=== PATIENT | female | born 1955 | race Caucasian/White ===

== ENCOUNTER 2017-03-05 17:20 | Inpatient (IN) | payer BC ==
[2017-03-05] MEDS ORDERED: Sodium Chloride 0.9% 2.5 ML Syringe FLUSH PRN (17:26)
[2017-03-05] MEDS ORDERED: Sodium Chloride 0.9% 10 ML Syringe FLUSH PRN (17:26)
[2017-03-05] MEDS ORDERED: Albuterol/Ipratropium 3.0-0.5 MG/3 ML Neb Soln NEB ONE (17:26)
--- NOTE | 2017-03-05 17:29 | EDM.PDOC ---
ED HISTORY OF PRESENT ILLNESS - General Chief Complaint: Respiratory Problem Stated Complaint: SHORTNESS OF BREATH Time Seen by Provider: 03/05/17 19:01 - History of Present Illness INITIAL COMMENTS - FREE TEXT/NARRATIVE: HISTORY AND PHYSICAL: History of present illness: patient is a 61-year-old white female history of advanced lung cancer qualified as stage IV per patient who states upon arrival that she is DO NOT RESUSCITATE who presents with her shortness of breath worse over the last 3 days stitches fine-tuned today when she spoke with her sister was a nurse and thought that she might be suffering brain damage related to not pursue an evaluation this caused quite a bit of anxiety the patient at her visit here Review of systems: As per history of present illness and below otherwise all systems reviewed and negative. Past medical history: As per history of present illness and as reviewed below otherwise noncontributory. Surgical history: As per history of present illness and as reviewed below otherwise noncontributory. Social history: No reported history of drug or alcohol abuse. Family history: As per history of present illness and as reviewed below otherwise noncontributory. Physical exam: HEENT: Atraumatic, normocephalic, pupils reactive, negative for conjunctival pallor or scleral icterus, mucous membranes moist, throat clear, neck supple, nontender, trachea midline. Lungs: Slightly coarse bilaterally and diminished breath sounds equal bilaterally, chest nontender. Heart: S1S2, regular, negative for clicks, rubs, or JVD. Abdomen: Soft, nondistended, nontender. Negative for masses or hepatosplenomegaly. Negative for costovertebral tenderness. Pelvis: Stable nontender. Genitourinary: Deferred. Rectal: Deferred. Extremities: Atraumatic, negative for cords or calf pain. Neurovascular unremarkable. Neuro: Awake, alert, oriented. Cranial nerves II through XII unremarkable. Cerebellum unremarkable. Motor and sensory unremarkable throughout. Exam nonfocal. Diagnostics: CBC CMP troponin PT INR blood culture x2 lactic acid ABG UA CT angiogram chest Therapeutics: IV O2 monitor albuterol ipratropium nebulizer Impression: #1 dyspnea #2 advanced lung cancer Definitive disposition and diagnosis as appropriate pending reevaluation and review of above. - Related Data Allergies/ADRs: Allergies Allergy/AdvReac Type Severity Reaction Status Date / Time clarithromycin [From Biaxin] Allergy Hives Verified 03/05/17 17:34 Home Meds: Home Meds Calcium Carbonate/Vitamin D3 [Calcium 600 + Vit D Tablet] 1 tab PO DAILY [History] DULoxetine [Cymbalta] 60 mg PO BID 07/23/16 [History] Folic Acid 1 mg PO DAILY 07/23/16 [History] Hydrochlorothiazide [Hydrochlorothiazide] 25 mg PO DAILY 07/23/16 [History] Hydrocodone/Acetaminophen [[place] 10-325] 1 tab PO Q6H PRN 07/23/16 [History] LORazepam [LORazepam] 1 mg PO TID PRN 07/23/16 [History] Lansoprazole [Prevacid] 15 mg PO ACBREAKFAST 07/23/16 [History] Lisinopril [Lisinopril] 10 mg PO DAILY 07/23/16 [History] Magnesium Oxide 800 mg PO TID 07/23/16 [History] Potassium Chloride [Potassium Chloride] 20 meq PO DAILY 07/23/16 [History] Prednisone [IMW: predniSONE] 40 mg PO DAILY 07/23/16 [History] Prochlorperazine Maleate [Compazine] 10 mg PO Q4H PRN 07/23/16 [History] Rosuvastatin [Crestor] 40 mg PO DAILY 07/23/16 [History] amLODIPine Besylate [Amlodipine Besylate] 5 mg PO DAILY 07/23/16 [History] Past Medical History Cardiovascular History: Reports: High cholesterol, Hypertension Neurological History: Reports: Migraines Psychiatric History: Reports: Anxiety, Depression Oncologic (Cancer) History: Reports: Lung - Past Surgical History GI Surgical History: Reports: Appendectomy, Cholecystectomy Female Surgical History: Reports: Hysterectomy Social & Family History - Family History Endocrine/Metabolic: Reports: Diabetes, type I, Diabetes, type II Oncologic: Reports: Colon - Tobacco Use Smoking Status *Q: Former Smoker Years of Tobacco use: 20 Packs/Tins Daily: 0.5 - Caffeine Use Caffeine Use: Reports: Coffee - Recreational Drug Use Recreational Drug Use: No ED ROS GENERAL - Review of Systems Review Of Systems: ROS reveals no pertinent complaints other than HPI. ED EXAM, GENERAL - Physical Exam Exam: See Below (See dictation) Course - Vital Signs Last Recorded V/S: Last Vital Signs Temp 36.4 C 03/05/17 17:35 Pulse 131 H 03/05/17 17:35 Resp 20 03/05/17 17:35 BP 131/97 H 03/05/17 17:35 Pulse Ox 87 L 03/05/17 17:35 - Orders/Labs/Meds Orders: Active Orders 24 hr Category Date Time Status Cardiac Monitoring [RC] . DIRECTED Care 03/05/17 17:25 Active EKG Documentation Completion [RC] STAT Care 03/05/17 17:25 Active Oxygen Therapy, ED [RC] ASDIRECTED Care 03/05/17 17:25 Active RT Aerosol Therapy [RC] ASDIRECTED Care 03/05/17 17:26 Active Ang Chest [CT] Stat Exams 03/05/17 17:26 Ordered CULTURE BLOOD [BC] Stat Lab 03/05/17 17:41 Received CULTURE BLOOD [BC] Stat Lab 03/05/17 17:50 Results UA W/MICROSCOPIC [URIN] Stat Lab 03/05/17 17:26 Uncollected Sodium Chloride 0.9% [Normal Saline] 1,000 ml Med 03/05/17 17:30 Active IV STAT Sodium Chloride 0.9% [Saline Flush] Med 03/05/17 17:26 Active 10 ml FLUSH ASDIRECTED PRN Sodium Chloride 0.9% [Saline Flush] Med 03/05/17 17:26 Active 2.5 ml FLUSH ASDIRECTED PRN Blood Culture x2 Reflex Set [OM.PC] Stat Oth 03/05/17 17:26 Ordered Saline Lock Insert [OM.PC] Stat Oth 03/05/17 17:25 Ordered Medication Orders Sodium Chloride (Normal Saline) 1,000 mls @ 125 mls/hr IV STAT [facility] Last Admin: 03/05/17 17:54 Dose: 125 mls/hr Sodium Chloride (Saline Flush) 10 ml FLUSH ASDIRECTED PRN PRN Reason: Keep Vein Open Sodium Chloride (Saline Flush) 2.5 ml FLUSH ASDIRECTED PRN PRN Reason: Keep Vein Open Labs: Laboratory Tests 03/05/17 03/05/17 03/05/17 Range/Units 17:50 17:50 17:50 WBC 4.87 (4.0-11.0) K/uL RBC 4.92 (4.30-5.90) M/uL Hgb 11.8 L (12.0-16.0) g/dL Hct 39.2 (36.0-46.0) % MCV 79.7 L (80.0-98.0) fL MCH 24.0 L (27.0-32.0) pg MCHC 30.1 L (31.0-37.0) g/dL RDW Std Deviation 49.2 (28.0-62.0) fl RDW Coeff of Ge 17 H (11.0-15.0) % Plt Count 182 (150-400) K/uL MPV 9.50 (7.40-12.00) fL Add Manual Diff YES Neutrophils % (Manual) 81 H (48.0-80.0) % Band Neutrophils % 8 % Lymphocytes % (Manual) 5 L (16.0-40.0) % Monocytes % (Manual) 4 (0.0-15.0) % Basophils % (Manual) 1 (0.0-1.5) % Metamyelocytes % 1 % Nucleated RBC % 0.4 /100WBC Absolute Seg Neuts 3.9 Band Neutrophils # 0.4 Lymphocytes # (Manual) 0.2 Monocytes # (Manual) 0.2 Basophils # (Manual) 0 Absolute Metamyelocyte 0 Nucleated RBCs # 0 K/uL INR 0.92 (0.86-1.11) ABG pH (7.35-7.45) ABG pCO2 (35-45) mmHG ABG pO2 (75-100) mmHG ABG HCO3 (22-26) mEq/L ABG Total CO2 ABG Base Excess (-2.0-2.0) Lactate 3.0 H (0.20-2.00) mmol/L Sodium (136-146) mmol/L Potassium (3.5-5.1) mmol/L Chloride (98-110) mmol/L Carbon Dioxide (21-31) mmol/L BUN (6.0-23.0) mg/dL Creatinine (0.6-1.5) mg/dL Est Cr Clr Drug Dosing mL/min Estimated GFR (MDRD) ml/min Glucose (60-110) mg/dL Calcium (8.8-10.8) mg/dL Total Bilirubin (0.1-1.5) mg/dL AST (5-40) IU/L ALT (8-54) IU/L Alkaline Phosphatase (40-150) Troponin I (0.0-0.29) NG/ML B-Natriuretic Peptide (<100) PG/ML Total Protein (6.0-8.0) g/dL Albumin (3.4-4.8) g/dL Globulin (2.0-3.5) g/dL Albumin/Globulin Ratio (1.3-2.8) 03/05/17 03/05/17 03/05/17 Range/Units 17:50 17:50 17:50 WBC (4.0-11.0) K/uL RBC (4.30-5.90) M/uL Hgb (12.0-16.0) g/dL Hct (36.0-46.0) % MCV (80.0-98.0) fL MCH (27.0-32.0) pg MCHC (31.0-37.0) g/dL RDW Std Deviation (28.0-62.0) fl RDW Coeff of Ge (11.0-15.0) % Plt Count (150-400) K/uL MPV (7.40-12.00) fL Add Manual Diff Neutrophils % (Manual) (48.0-80.0) % Band Neutrophils % % Lymphocytes % (Manual) (16.0-40.0) % Monocytes % (Manual) (0.0-15.0) % Basophils % (Manual) (0.0-1.5) % Metamyelocytes % % Nucleated RBC % /100WBC Absolute Seg Neuts Band Neutrophils # Lymphocytes # (Manual) Monocytes # (Manual) Basophils # (Manual) Absolute Metamyelocyte Nucleated RBCs # K/uL INR (0.86-1.11) ABG pH (7.35-7.45) ABG pCO2 (35-45) mmHG ABG pO2 (75-100) mmHG ABG HCO3 (22-26) mEq/L ABG Total CO2 ABG Base Excess (-2.0-2.0) Lactate (0.20-2.00) mmol/L Sodium 135 L (136-146) mmol/L Potassium 3.6 (3.5-5.1) mmol/L Chloride 99 (98-110) mmol/L Carbon Dioxide 23 (21-31) mmol/L BUN 18 (6.0-23.0) mg/dL Creatinine 0.8 (0.6-1.5) mg/dL Est Cr Clr Drug Dosing 62.96 mL/min Estimated GFR (MDRD) > 60.0 ml/min Glucose 130 H (60-110) mg/dL Calcium 9.2 (8.8-10.8) mg/dL Total Bilirubin 0.3 (0.1-1.5) mg/dL AST 16 (5-40) IU/L ALT 17 (8-54) IU/L Alkaline Phosphatase 63 (40-150) Troponin I < 0.10 (0.0-0.29) NG/ML B-Natriuretic Peptide 22 (<100) PG/ML Total Protein 6.0 (6.0-8.0) g/dL Albumin 3.3 L (3.4-4.8) g/dL Globulin 2.7 (2.0-3.5) g/dL Albumin/Globulin Ratio 1.2 L (1.3-2.8) 04/29/17 Range/Units 18:03 WBC (4.0-11.0) K/uL RBC (4.30-5.90) M/uL Hgb (12.0-16.0) g/dL Hct (36.0-46.0) % MCV (80.0-98.0) fL MCH (27.0-32.0) pg MCHC (31.0-37.0) g/dL RDW Std Deviation (28.0-62.0) fl RDW Coeff of Ge (11.0-15.0) % Plt Count (150-400) K/uL MPV (7.40-12.00) fL Add Manual Diff Neutrophils % (Manual) (48.0-80.0) % Band Neutrophils % % Lymphocytes % (Manual) (16.0-40.0) % Monocytes % (Manual) (0.0-15.0) % Basophils % (Manual) (0.0-1.5) % Metamyelocytes % % Nucleated RBC % /100WBC Absolute Seg Neuts Band Neutrophils # Lymphocytes # (Manual) Monocytes # (Manual) Basophils # (Manual) Absolute Metamyelocyte Nucleated RBCs # K/uL INR (0.86-1.11) ABG pH 7.481 H (7.35-7.45) ABG pCO2 36 (35-45) mmHG ABG pO2 66 L (75-100) mmHG ABG HCO3 27 H (22-26) mEq/L ABG Total CO2 24.4 ABG Base Excess 3.0 H (-2.0-2.0) Lactate (0.20-2.00) mmol/L Sodium (136-146) mmol/L Potassium (3.5-5.1) mmol/L Chloride (98-110) mmol/L Carbon Dioxide (21-31) mmol/L BUN (6.0-23.0) mg/dL Creatinine (0.6-1.5) mg/dL Est Cr Clr Drug Dosing mL/min Estimated GFR (MDRD) ml/min Glucose (60-110) mg/dL Calcium (8.8-10.8) mg/dL Total Bilirubin (0.1-1.5) mg/dL AST (5-40) IU/L ALT (8-54) IU/L Alkaline Phosphatase (40-150) Troponin I (0.0-0.29) NG/ML B-Natriuretic Peptide (<100) PG/ML Total Protein (6.0-8.0) g/dL Albumin (3.4-4.8) g/dL Globulin (2.0-3.5) g/dL Albumin/Globulin Ratio (1.3-2.8) Meds: Medications Generic Name Dose Route Start Last Admin Trade Name Freq PRN Reason Stop Dose Admin Sodium Chloride 1,000 mls @ 125 mls/hr 03/05/17 17:30 03/05/17 17:54 Normal Saline IV 125 mls/hr STAT EDUARDO Administration Sodium Chloride 10 ml 03/05/17 17:26 Saline Flush FLUSH ASDIRECTED PRN Keep Vein Open Sodium Chloride 2.5 ml 03/05/17 17:26 Saline Flush FLUSH ASDIRECTED PRN Keep Vein Open Discontinued Medications Generic Name Dose Route Start Last Admin Trade Name Freq PRN Reason Stop Dose Admin Albuterol/Ipratropium 3 ml 03/05/17 17:26 03/05/17 18:05 Duoneb 3.0-0.5 Mg/3 Ml NEB 03/05/17 17:27 3 ml ONETIME ONE Administration Departure - Departure Time of Disposition: 19:01 Disposition: Refer to Observation Condition: good Clinical Impression: Metastatic lung cancer (metastasis from lung to other site), Hypoxemia Forms: ED Department Discharge - My Orders Last 24 Hours: My Active Orders 03/05/17 17:25 Cardiac Monitoring [RC] . DIRECTED EKG Documentation Completion [RC] STAT Oxygen Therapy, ED [RC] ASDIRECTED Saline Lock Insert [OM.PC] Stat 03/05/17 17:26 RT Aerosol Therapy [RC] ASDIRECTED Ang Chest [CT] Stat UA W/MICROSCOPIC [URIN] Stat Sodium Chloride 0.9% [Saline Flush] 10 ml FLUSH ASDIRECTED PRN Sodium Chloride 0.9% [Saline Flush] 2.5 ml FLUSH ASDIRECTED PRN Blood Culture x2 Reflex Set [OM.PC] Stat 03/05/17 17:30 Sodium Chloride 0.9% [Normal Saline] 1,000 ml IV STAT 03/05/17 17:41 CULTURE BLOOD [BC] Stat 03/05/17 17:50 CULTURE BLOOD [BC] Stat - Assessment/Plan Last 24 Hours: My Active Orders 03/05/17 17:25 Cardiac Monitoring [RC] . DIRECTED EKG Documentation Completion [RC] STAT Oxygen Therapy, ED [RC] ASDIRECTED Saline Lock Insert [OM.PC] Stat 03/05/17 17:26 RT Aerosol Therapy [RC] ASDIRECTED Ang Chest [CT] Stat UA W/MICROSCOPIC [URIN] Stat Sodium Chloride 0.9% [Saline Flush] 10 ml FLUSH ASDIRECTED PRN Sodium Chloride 0.9% [Saline Flush] 2.5 ml FLUSH ASDIRECTED PRN Blood Culture x2 Reflex Set [OM.PC] Stat 03/05/17 17:30 Sodium Chloride 0.9% [Normal Saline] 1,000 ml IV STAT 03/05/17 17:41 CULTURE BLOOD [BC] Stat 03/05/17 17:50 CULTURE BLOOD [BC] Stat
[2017-03-05] MEDS ORDERED: Sodium Chloride 0.9% 1,000 ML IV SCH (17:30)
[2017-03-05 18:25] LABS: CHLORIDE,CL 99 mmol/L (98-110); SODIUM,NA 135 mmol/L (136-146)
[2017-03-05] MEDS ORDERED: Albuterol/Ipratropium 3.0-0.5 MG/3 ML Neb Soln NEB PRN (19:39)
[2017-03-05] MEDS ORDERED: LORazepam 1 MG Tab PO PRN (20:00)
--- NOTE | 2017-03-05 20:00 | PCM.SN ---
- Free Text/Narrative Note: Called by nursing for large bore IV access for CT angio. U/S was used to identify the Rt deep brachial vein. 20g IV was used. +Blood return. Flushes with ease.
[2017-03-05] MEDS ORDERED: Magnesium Sulfate/Water 2 GM in Premix Bag 1 BAG IV ONE (20:30)
[2017-03-05] MEDS ORDERED: Lidocaine 2% Viscous Solution 15 ML Cup PO PRN (20:33)
[2017-03-05] MEDS: DULoxetine 60 MG Cap PO SCH (21:22)
[2017-03-05] MEDS: Enoxaparin 40 MG/0.4 ML Syringe SUBCUT SCH (21:22)
[2017-03-05] MEDS: Magnesium Oxide 400 MG Tab PO SCH (22:16)
[2017-03-05] MEDS ORDERED: Iopamidol 755 MG/ML 50 ML Bottle IV STA (22:40)
[2017-03-06] MEDS ORDERED: Sodium Chloride 0.9% 1,000 ML IV SCH (01:45)
[2017-03-06] MEDS: Cefepime 2 GM in Premix Bag 1 BAG IV SCH ×2 (03:19→14:32)
[2017-03-06] MEDS: Levofloxacin/Dextrose 5%-Water 750 MG in Premix Bag 1 BAG IV SCH (04:08)
[2017-03-06 04:17] LABS: CHLORIDE,CL 100 mmol/L (98-110); SODIUM,NA 135 mmol/L (136-146)
[2017-03-06] MEDS: Acetaminophen/HYDROcodone 325-10 MG Tab PO PRN ×3 (05:28→18:00)
[2017-03-06] MEDS: Magnesium Oxide 400 MG Tab PO SCH ×3 (06:34→20:59)
[2017-03-06] MEDS: Omeprazole 20 MG Cap.CR PO SCH (06:34)
[2017-03-06] MEDS: predniSONE 10 MG Tab PO SCH (08:02)
[2017-03-06] MEDS: Rosuvastatin 10 MG Tab PO SCH (08:02)
[2017-03-06] MEDS: Lisinopril 10 MG Tab PO SCH (08:03)
[2017-03-06] MEDS: Hydrochlorothiazide 25 MG Tab PO SCH (08:03)
[2017-03-06] MEDS: DULoxetine 60 MG Cap PO SCH ×2 (08:03→20:58)
[2017-03-06] MEDS: amLODIPine 5 MG Tab PO SCH (08:03)
[2017-03-06] MEDS: Folic Acid 1 MG Tab PO SCH (08:03)
[2017-03-06] MEDS: Enoxaparin 40 MG/0.4 ML Syringe SUBCUT SCH ×2 (08:06→20:58)
--- NOTE | 2017-03-06 09:55 | PCM.HP ---
H&P History of Present Illness - General Date of Service: 03/05/17 Admit Problem/Dx: Admission Diagnosis/Problem Admission Diagnosis/Problem Pneumonia Source of Information: Patient History Limitations: Reports: No limitations - History of Present Illness Initial Comments - Free Text/Narative: lstringy infiltrate inferiorlyce the., she has become progressively short of breath with activity even walking across the room, Found to be hypoxic i ER. Ct angio attempted but IV infiltrated and CXR was done instead showing R hilar tumor, overall hazy appearance of R lung and stringy RLL infiltrate Onset of Symptoms: Reports: gradual Duration of Symptoms: Reports: Week(s):, Getting worse Severity: moderate Improves with: Reports: None Worsens with: Reports: Movement Associated Symptoms: Denies: chest pain, cough back Pain Score (Numeric/FACES): 4 - Related Data Allergies/Adverse Reactions: Allergies Allergy/AdvReac Type Severity Reaction Status Date / Time clarithromycin [From Biaxin] Allergy Hives Verified 03/05/17 17:34 nivolumab [From Opdivo] Allergy Diarrhea Verified 03/05/17 20:17 Home Medications: Home Meds Calcium Carbonate/Vitamin D3 [Calcium 600 + Vit D Tablet] 1 tab PO DAILY [History] DULoxetine [Cymbalta] 60 mg PO BID 07/23/16 [History] Folic Acid 1 mg PO DAILY 07/23/16 [History] Hydrochlorothiazide [Hydrochlorothiazide] 25 mg PO DAILY 07/23/16 [History] Hydrocodone/Acetaminophen [[place] 10-325] 1 tab PO Q6H PRN 07/23/16 [History] LORazepam [LORazepam] 1 mg PO TID PRN 07/23/16 [History] Lansoprazole [Prevacid] 15 mg PO ACBREAKFAST 07/23/16 [History] Lisinopril [Lisinopril] 10 mg PO DAILY 07/23/16 [History] Magnesium Oxide 800 mg PO BID 07/23/16 [History] Potassium Chloride [Potassium Chloride] 20 meq PO BID 07/23/16 [History] Prednisone [IMW: predniSONE] 10 mg PO DAILY 07/23/16 [History] Rosuvastatin [Crestor] 40 mg PO DAILY 07/23/16 [History] amLODIPine Besylate [Amlodipine Besylate] 5 mg PO DAILY 07/23/16 [History] Past Medical History HEENT History: Reports: Impaired vision Other HEENT History: wears glasses Cardiovascular History: Reports: High cholesterol, Hypertension Respiratory History: Reports: Other (see below) Other Respiratory History: Lung cancer Gastrointestinal History: Reports: Chronic diarrhea (had severe diarrhea while receiving Opdivo, requiring steroids to resolve) EVENTS SPECIALIST History: Reports: Neurological History: Reports: Migraines Psychiatric History: Reports: Anxiety, Depression Oncologic (Cancer) History: Reports: Lung - Past Surgical History GI Surgical History: Reports: Appendectomy, Cholecystectomy Female Surgical History: Reports: Hysterectomy Social & Family History - Family History Family Medical History: Noncontributory Endocrine/Metabolic: Reports: Diabetes, type I, Diabetes, type II Oncologic: Reports: Colon - Tobacco Use Smoking Status *Q: Never Smoker Years of Tobacco use: 20 Packs/Tins Daily: 0.5 Second Hand Smoke Exposure: No - Caffeine Use Caffeine Use: Reports: Coffee - Recreational Drug Use Recreational Drug Use: No - Living Situation & Occupation 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) H&P Review of Systems - Review of Systems: Review Of Systems: See Below General: Reports: weight gain (in past) HEENT: Reports: no symptoms Pulmonary: Denies: Wheezing, Pleuritic Chest Pain, Cough, Sputum Cardiovascular: Reports: no symptoms Gastrointestinal: Reports: No symptoms Genitourinary: Reports: no symptoms Musculoskeletal: Reports: no symptoms Skin: Reports: no symptoms Psychiatric: Reports: anxiety Hematologic/Lymphatic: Reports: no symptoms Exam - Exam Exam: See Below - Vital Signs Vital Signs: Last Vital Signs Temp 36.6 C 03/06/17 09:00 Pulse 97 03/06/17 09:00 Resp 16 03/06/17 09:00 BP 101/58 L 03/06/17 09:00 Pulse Ox 89 L 03/06/17 09:00 Weight: 81.511 kg - Exam Quality Assessment: supplemental oxygen General: alert, mild distress HEENT: Posterior pharynx clear Neck: supple, 2+ carotid pulse wo bruit Lungs: Clear to auscultation, Decreased breath sounds, Other (mediport L chest) Cardiovascular: regular rate Abdomen: normal bowel sounds (Female) Exam: Deferred Rectal (Female) Exam: Deferred Back Exam: normal inspection Extremities: normal inspection. No: clubbing, calf tenderness Skin: warm, intact Neurological: normal speech Neuro Extensive - Mental Status: alert, oriented x3 Psychiatric: anxious - Patient Data Lab Results last 24 hrs: Laboratory Results - last 24 hr 03/05/17 03/06/17 03/06/17 Range/Units 22:29 01:00 03:25 WBC 5.04 (4.0-11.0) K/uL RBC 4.44 (4.30-5.90) M/uL Hgb 10.6 L (12.0-16.0) g/dL Hct 34.7 L (36.0-46.0) % MCV 78.2 L (80.0-98.0) fL MCH 23.9 L (27.0-32.0) pg MCHC 30.5 L (31.0-37.0) g/dL RDW Std Deviation 47.9 (28.0-62.0) fl RDW Coeff of Ge 17 H (11.0-15.0) % Plt Count 170 (150-400) K/uL MPV 9.30 (7.40-12.00) fL Add Manual Diff YES Neutrophils % (Manual) 80 (48.0-80.0) % Band Neutrophils % 2 % Lymphocytes % (Manual) 12 L (16.0-40.0) % Monocytes % (Manual) 6 (0.0-15.0) % Nucleated RBC % 0.0 /100WBC Absolute Seg Neuts 4.0 Band Neutrophils # 0.1 Lymphocytes # (Manual) 0.6 Monocytes # (Manual) 0.3 Nucleated RBCs # 0 K/uL Lactate 0.7 (0.20-2.00) mmol/L Sodium (136-146) mmol/L Potassium (3.5-5.1) mmol/L Chloride (98-110) mmol/L Carbon Dioxide (21-31) mmol/L BUN (6.0-23.0) mg/dL Creatinine (0.6-1.5) mg/dL Est Cr Clr Drug Dosing mL/min Estimated GFR (MDRD) ml/min Glucose (60-110) mg/dL Calcium (8.8-10.8) mg/dL Urine Color YELLOW Urine Appearance CLEAR Urine pH 7.0 (5.0-8.0) Ur Specific [place] 1.015 (1.001-1.035) Urine Protein NEGATIVE (NEGATIVE) mg/dL Urine Glucose (UA) NEGATIVE (NEGATIVE) mg/dL Urine Ketones NEGATIVE (NEGATIVE) mg/dL Urine Occult Blood NEGATIVE (NEGATIVE) Urine Nitrite NEGATIVE (NEGATIVE) Urine Bilirubin NEGATIVE (NEGATIVE) Urine Urobilinogen 0.2 (<2.0) EU/dL Ur Leukocyte Esterase NEGATIVE (NEGATIVE) Urine RBC 1-2 (0-2/HPF) Urine WBC 0-2 (0-5/HPF) Ur Epithelial Cells OCCASIONAL (NONE-FEW) Urine Bacteria RARE (NEGATIVE) 03/06/17 Range/Units 03:25 WBC (4.0-11.0) K/uL RBC (4.30-5.90) M/uL Hgb (12.0-16.0) g/dL Hct (36.0-46.0) % MCV (80.0-98.0) fL MCH (27.0-32.0) pg MCHC (31.0-37.0) g/dL RDW Std Deviation (28.0-62.0) fl RDW Coeff of Ge (11.0-15.0) % Plt Count (150-400) K/uL MPV (7.40-12.00) fL Add Manual Diff Neutrophils % (Manual) (48.0-80.0) % Band Neutrophils % % Lymphocytes % (Manual) (16.0-40.0) % Monocytes % (Manual) (0.0-15.0) % Nucleated RBC % /100WBC Absolute Seg Neuts Band Neutrophils # Lymphocytes # (Manual) Monocytes # (Manual) Nucleated RBCs # K/uL Lactate (0.20-2.00) mmol/L Sodium 135 L (136-146) mmol/L Potassium 3.3 L (3.5-5.1) mmol/L Chloride 100 (98-110) mmol/L Carbon Dioxide 25 (21-31) mmol/L BUN 10 (6.0-23.0) mg/dL Creatinine 0.7 (0.6-1.5) mg/dL Est Cr Clr Drug Dosing 71.96 mL/min Estimated GFR (MDRD) > 60.0 ml/min Glucose 93 (60-110) mg/dL Calcium 8.3 L (8.8-10.8) mg/dL Urine Color Urine Appearance Urine pH (5.0-8.0) Ur Specific [place] (1.001-1.035) Urine Protein (NEGATIVE) mg/dL Urine Glucose (UA) (NEGATIVE) mg/dL Urine Ketones (NEGATIVE) mg/dL Urine Occult Blood (NEGATIVE) Urine Nitrite (NEGATIVE) Urine Bilirubin (NEGATIVE) Urine Urobilinogen (<2.0) EU/dL Ur Leukocyte Esterase (NEGATIVE) Urine RBC (0-2/HPF) Urine WBC (0-5/HPF) Ur Epithelial Cells (NONE-FEW) Urine Bacteria (NEGATIVE) Result Diagrams: 03/06/17 03:25 03/06/17 03:25 *Q Meaningful Use (ADM) - VTE *Q VTE Criteria *Q: - VTE Risk Assess *Q Each Risk Factor Represents 2 Points: Age 60 - 74 Years, Previous Malignancy Total Score 2 Point Risk Factors: 4 Each Risk Factor Represents 3 Points: Present Cancer or Chemotherapy Total Score 3 Point Risk Factors: 3 - Stroke *Q Stroke Criteria *Q: - AMI *Q AMI Criteria *Q: Problem List Initiated/Reviewed/Updated: Yes Orders Last 24hrs: Active Orders 24 hr Category Date Time Status Admission Status [Patient Status] [ADT] Routine ADT 03/05/17 20:36 Active Oxygen Therapy [RC] PRN Care 03/06/17 03:02 Active Pneumonia Education [RC] Click To Edit Care 03/06/17 03:02 Active Telemetry Monitoring [Cardiac Monitoring] [RC] Q8H Care 03/06/17 02:03 Active Regular Diet [DIET] Diet 03/05/17 Dinner Active CULTURE BLOOD [BC] Stat Lab 03/06/17 03:25 Received CULTURE BLOOD [BC] Stat Lab 03/06/17 03:40 Received Cefepime [Maxipime in D5W 2 GM/50 ML] 2 gm Med 03/06/17 03:00 Active Premix Bag 1 bag IV Q12H Levofloxacin/Dextrose 5%-Water [Levaquin in D5W 750 MG/ Med 03/06/17 03:00 Active 150 ML] 750 mg Premix Bag 1 bag IV Q24H Sodium Chloride 0.9% [Normal Saline] 1,000 ml Med 03/06/17 01:45 Active IV ASDIRECTED Blood Culture x2 Reflex Set [OM.PC] Stat Oth 03/06/17 03:02 Ordered Medication Orders Hydrocodone Bitart/Acetaminophen ([place] 325-10 Mg) 1 tab PO Q6H PRN PRN Reason: Pain Last Admin: 03/06/17 05:28 Dose: 1 tab Albuterol/Ipratropium (Duoneb 3.0-0.5 Mg/3 Ml) 3 ml NEB Q4HRRT PRN PRN Reason: Shortness Of Breath/wheezing Amlodipine Besylate (Norvasc) 5 mg PO DAILY [facility] Last Admin: 03/06/17 08:03 Dose: 5 mg Duloxetine HCl (Cymbalta) 60 mg PO BID [facility] Last Admin: 03/06/17 08:03 Dose: 60 mg Admin: 03/05/17 21:22 Dose: 60 mg Enoxaparin Sodium (Lovenox) 40 mg SUBCUT Q12HR [facility] Last Admin: 03/06/17 08:06 Dose: 40 mg Admin: 03/05/17 21:22 Dose: 40 mg Folic Acid (Folic Acid) 1 mg PO DAILY [facility] Last Admin: 03/06/17 08:03 Dose: 1 mg Hydrochlorothiazide (Hydrochlorothiazide) 25 mg PO DAILY [facility] Last Admin: 03/06/17 08:03 Dose: 25 mg Sodium Chloride (Normal Saline) 1,000 mls @ 100 mls/hr IV ASDIRECTED [facility] Stop: 03/06/17 11:44 Last Admin: 03/06/17 01:42 Dose: 100 mls/hr Cefepime HCl 2 gm/ Premix 50 mls @ 100 mls/hr IV Q12H [facility] Last Admin: 03/06/17 03:19 Dose: 100 mls/hr Levofloxacin/Dextrose 750 mg/ (Premix) 150 mls @ 150 mls/hr IV Q24H [facility] Last Admin: 03/06/17 04:08 Dose: 150 mls/hr Lidocaine HCl (Xylocaine 2% Viscous) 15 ml PO ASDIRECTED PRN PRN Reason: Dyspepsia Lisinopril (Prinivil) 10 mg PO DAILY [facility] Last Admin: 03/06/17 08:03 Dose: 10 mg Lorazepam (Ativan) 1 mg PO TID PRN PRN Reason: ANXIETY Last Admin: 03/05/17 21:22 Dose: 1 mg Magnesium Oxide (Magnesium Oxide) 800 mg PO TID [facility] Last Admin: 03/06/17 06:34 Dose: 800 mg Admin: 03/05/17 22:16 Dose: 800 mg Omeprazole (Omeprazole) 20 mg PO ACBREAKFAST [facility] Last Admin: 03/06/17 06:34 Dose: 20 mg Prednisone (Prednisone) 10 mg PO WITHBREAKFAST [facility]UARDO Last Admin: 03/06/17 08:02 Dose: 10 mg Rosuvastatin Calcium (Crestor) 40 mg PO DAILY [facility] Last Admin: 03/06/17 08:02 Dose: 40 mg Sodium Chloride (Saline Flush) 10 ml FLUSH ASDIRECTED PRN PRN Reason: Keep Vein Open Sodium Chloride (Saline Flush) 2.5 ml FLUSH ASDIRECTED PRN PRN Reason: Keep Vein Open Assessment/Plan Comment:: hypoxia out of proportion to extent of tumor, possible radiation pneumonitis, probable RLL pneumonia Will treat as health care associated pneumonia with antibiotics and respiratory therapy
[2017-03-06] MEDS: Potassium Chloride 20 MEQ Tab.ER PO SCH ×2 (10:51→20:58)
--- NOTE | 2017-03-06 11:05 | PCM.PN ---
- General Info Date of Service: 03/06/17 Admission Dx/Problem (Free Text): feel better with oxygen, but did walk to bathroom without major dyspnea Functional Status: Reports: tolerating diet (barely, does not care for it) - Review of Systems General: Reports: No Symptoms HEENT: Reports: no symptoms Pulmonary: Reports: shortness of breath (better, but very inactive) Cardiovascular: Reports: No Symptoms Gastrointestinal: Reports: No symptoms Genitourinary: Reports: no symptoms Musculoskeletal: Reports: no symptoms - Patient Data Vitals - most recent: Last Vital Signs Temp 36.6 C 03/06/17 09:00 Pulse 97 03/06/17 09:00 Resp 16 03/06/17 09:00 BP 101/58 L 03/06/17 09:00 Pulse Ox 89 L 03/06/17 09:00 Weight - most recent: 81.511 kg I&O - last 24 hours: Intake & Output 03/05/17 03/06/17 03/06/17 22:59 06:59 14:59 Intake Total 700 Output Total 900 Balance -200 Lab Results last 24 hrs: Laboratory Results - last 24 hr 03/05/17 03/06/17 03/06/17 Range/Units 22:29 01:00 03:25 WBC 5.04 (4.0-11.0) K/uL RBC 4.44 (4.30-5.90) M/uL Hgb 10.6 L (12.0-16.0) g/dL Hct 34.7 L (36.0-46.0) % MCV 78.2 L (80.0-98.0) fL MCH 23.9 L (27.0-32.0) pg MCHC 30.5 L (31.0-37.0) g/dL RDW Std Deviation 47.9 (28.0-62.0) fl RDW Coeff of Ge 17 H (11.0-15.0) % Plt Count 170 (150-400) K/uL MPV 9.30 (7.40-12.00) fL Add Manual Diff YES Neutrophils % (Manual) 80 (48.0-80.0) % Band Neutrophils % 2 % Lymphocytes % (Manual) 12 L (16.0-40.0) % Monocytes % (Manual) 6 (0.0-15.0) % Nucleated RBC % 0.0 /100WBC Absolute Seg Neuts 4.0 Band Neutrophils # 0.1 Lymphocytes # (Manual) 0.6 Monocytes # (Manual) 0.3 Nucleated RBCs # 0 K/uL Lactate 0.7 (0.20-2.00) mmol/L Sodium (136-146) mmol/L Potassium (3.5-5.1) mmol/L Chloride (98-110) mmol/L Carbon Dioxide (21-31) mmol/L BUN (6.0-23.0) mg/dL Creatinine (0.6-1.5) mg/dL Est Cr Clr Drug Dosing mL/min Estimated GFR (MDRD) ml/min Glucose (60-110) mg/dL Calcium (8.8-10.8) mg/dL Urine Color YELLOW Urine Appearance CLEAR Urine pH 7.0 (5.0-8.0) Ur Specific [place] 1.015 (1.001-1.035) Urine Protein NEGATIVE (NEGATIVE) mg/dL Urine Glucose (UA) NEGATIVE (NEGATIVE) mg/dL Urine Ketones NEGATIVE (NEGATIVE) mg/dL Urine Occult Blood NEGATIVE (NEGATIVE) Urine Nitrite NEGATIVE (NEGATIVE) Urine Bilirubin NEGATIVE (NEGATIVE) Urine Urobilinogen 0.2 (<2.0) EU/dL Ur Leukocyte Esterase NEGATIVE (NEGATIVE) Urine RBC 1-2 (0-2/HPF) Urine WBC 0-2 (0-5/HPF) Ur Epithelial Cells OCCASIONAL (NONE-FEW) Urine Bacteria RARE (NEGATIVE) 03/06/17 Range/Units 03:25 WBC (4.0-11.0) K/uL RBC (4.30-5.90) M/uL Hgb (12.0-16.0) g/dL Hct (36.0-46.0) % MCV (80.0-98.0) fL MCH (27.0-32.0) pg MCHC (31.0-37.0) g/dL RDW Std Deviation (28.0-62.0) fl RDW Coeff of Ge (11.0-15.0) % Plt Count (150-400) K/uL MPV (7.40-12.00) fL Add Manual Diff Neutrophils % (Manual) (48.0-80.0) % Band Neutrophils % % Lymphocytes % (Manual) (16.0-40.0) % Monocytes % (Manual) (0.0-15.0) % Nucleated RBC % /100WBC Absolute Seg Neuts Band Neutrophils # Lymphocytes # (Manual) Monocytes # (Manual) Nucleated RBCs # K/uL Lactate (0.20-2.00) mmol/L Sodium 135 L (136-146) mmol/L Potassium 3.3 L (3.5-5.1) mmol/L Chloride 100 (98-110) mmol/L Carbon Dioxide 25 (21-31) mmol/L BUN 10 (6.0-23.0) mg/dL Creatinine 0.7 (0.6-1.5) mg/dL Est Cr Clr Drug Dosing 71.96 mL/min Estimated GFR (MDRD) > 60.0 ml/min Glucose 93 (60-110) mg/dL Calcium 8.3 L (8.8-10.8) mg/dL Urine Color Urine Appearance Urine pH (5.0-8.0) Ur Specific [place] (1.001-1.035) Urine Protein (NEGATIVE) mg/dL Urine Glucose (UA) (NEGATIVE) mg/dL Urine Ketones (NEGATIVE) mg/dL Urine Occult Blood (NEGATIVE) Urine Nitrite (NEGATIVE) Urine Bilirubin (NEGATIVE) Urine Urobilinogen (<2.0) EU/dL Ur Leukocyte Esterase (NEGATIVE) Urine RBC (0-2/HPF) Urine WBC (0-5/HPF) Ur Epithelial Cells (NONE-FEW) Urine Bacteria (NEGATIVE) Med Orders - Current: Current Medications Hydrocodone Bitart/Acetaminophen ([place] 325-10 Mg) 1 tab PO Q6H PRN PRN Reason: Pain Last Admin: 03/06/17 05:28 Dose: 1 tab Albuterol/Ipratropium (Duoneb 3.0-0.5 Mg/3 Ml) 3 ml NEB Q4HRRT PRN PRN Reason: Shortness Of Breath/wheezing Amlodipine Besylate (Norvasc) [address] [facility] Last Admin: 03/06/17 08:03 Dose: 5 mg Duloxetine HCl (Cymbalta) [address] [facility] Last Admin: 03/06/17 08:03 Dose: 60 mg Enoxaparin Sodium (Lovenox) [address] [facility] Last Admin: 03/06/17 08:06 Dose: 40 mg Folic Acid (Folic Acid) [address] [facility] Last Admin: 03/06/17 08:03 Dose: 1 mg Hydrochlorothiazide (Hydrochlorothiazide) [address] [facility] Last Admin: 03/06/17 08:03 Dose: 25 mg Sodium Chloride (Normal Saline) 1,000 mls @ 100 mls/hr IV ASDIRECTED [facility] Stop: 03/06/17 11:44 Last Admin: 03/06/17 01:42 Dose: 100 mls/hr Cefepime HCl 2 gm/ Premix 50 mls @ 100 mls/hr IV Q12H [facility] Last Admin: 03/06/17 03:19 Dose: 100 mls/hr Levofloxacin/Dextrose 750 mg/ (Premix) 150 mls @ 150 mls/hr IV Q24H [facility] Last Admin: 03/06/17 04:08 Dose: 150 mls/hr Lidocaine HCl (Xylocaine 2% Viscous) 15 ml PO ASDIRECTED PRN PRN Reason: Dyspepsia Lisinopril (Prinivil) [address] [facility] Last Admin: 03/06/17 08:03 Dose: 10 mg Lorazepam (Ativan) 1 mg PO TID PRN PRN Reason: ANXIETY Last Admin: 03/05/17 21:22 Dose: 1 mg Magnesium Oxide (Magnesium Oxide) [address] [facility] Last Admin: 03/06/17 06:34 Dose: 800 mg Omeprazole (Omeprazole) [address] [facility] Last Admin: 03/06/17 06:34 Dose: 20 mg Potassium Chloride (Klor-Con M20) [address] [facility] Last Admin: 03/06/17 10:51 Dose: 20 meq Prednisone (Prednisone) [address] [facility] Last Admin: 03/06/17 08:02 Dose: 10 mg Rosuvastatin Calcium (Crestor) [address] [facility] Last Admin: 03/06/17 08:02 Dose: 40 mg Sodium Chloride (Saline Flush) 10 ml FLUSH ASDIRECTED PRN PRN Reason: Keep Vein Open Sodium Chloride (Saline Flush) 2.5 ml FLUSH ASDIRECTED PRN PRN Reason: Keep Vein Open Discontinued Medications Albuterol/Ipratropium (Duoneb 3.0-0.5 Mg/3 Ml) 3 ml NEB ONETIME ONE Stop: 03/05/17 17:27 Last Admin: 03/05/17 18:05 Dose: 3 ml Sodium Chloride (Normal Saline) 1,000 mls @ 125 mls/hr IV STAT [facility] Last Admin: 03/05/17 17:54 Dose: 125 mls/hr Magnesium Sulfate 2 gm/ Premix 50 mls @ 50 mls/hr IV ONETIME ONE Stop: 03/05/17 21:29 Last Admin: 03/05/17 21:21 Dose: 50 mls/hr Iopamidol (Isovue-370 (76%)) 47 ml IV ONETIME STA Stop: 03/05/17 22:41 Last Admin: 03/05/17 22:41 Dose: 47 ml - Problem List Review Problem List Initiated/Reviewed/Updated: Yes - My Orders Last 24 Hours: My Active Orders 03/05/17 20:36 Admission Status [Patient Status] [ADT] Routine 03/05/17 Dinner Regular Diet [DIET] 03/06/17 01:45 Sodium Chloride 0.9% [Normal Saline] 1,000 ml IV ASDIRECTED 03/06/17 02:03 Telemetry Monitoring [Cardiac Monitoring] [RC] Q8H 03/06/17 03:00 Cefepime [Maxipime in D5W 2 GM/50 ML] 2 gm Premix Bag 1 bag IV Q12H Levofloxacin/Dextrose 5%-Water [Levaquin in D5W 750 MG/150 ML] 750 mg Premix Bag 1 bag IV Q24H 03/06/17 03:02 Oxygen Therapy [RC] PRN Pneumonia Education [RC] Click To Edit Blood Culture x2 Reflex Set [OM.PC] Stat 03/06/17 03:25 CULTURE BLOOD [BC] Stat 03/06/17 03:40 CULTURE BLOOD [BC] Stat 03/06/17 10:30 Potassium Chloride [Klor-Con M20] 20 meq PO BID 03/07/17 06:00 BASIC METABOLIC PANEL,BMP [CHEM] Routine MAGNESIUM [CHEM] Routine - Assessment Assessment:: seems improved. wbc , lactate level ,now normal pulse ox 89% on nasal O2 - Plan Plan:: hypoxia out of proportion to extent of tumor, possible radiation pneumonitis, probable RLL pneumonia Will treat as health care associated pneumonia with antibiotics and respiratory therapy Will continue same
--- NOTE | 2017-03-06 18:36 | CR ---
EXAM DATE: 03/05/17 PATIENT'S AGE: 61 Patient: KRYSTLE GOODMAN Facility: [place], [place] Site . Site : 1955 Study: XRay Chest [id number]/29/2017 8:43:25 PM Ordering Physician: Leti Garcia Final Report: INDICATION: Chest pain and shortness of breath, history of lung cancer. TECHNIQUE: Chest 1 view. COMPARISON: 07/23/2016. FINDINGS: The heart is not enlarged. Left chest Port-A-Cath is stable with tip in the mid SVC. There is a new wedge-shaped opacity emanating from the right hilum to the right lateral chest wall. The left lung is clear. No pneumothorax. No pleural effusion. No acute osseous abnormality. IMPRESSION: New wedge-shaped right perihilar opacity is new from prior chest radiograph and may be acute and secondary to pneumonia. However, given the history of lung carcinoma, this could represent a combination of postsurgical and radiation change. Dictated by Gigi Martin MD @ Mar 05 2017 8:57PM (Electronic Signature) Report Signed by Proxy. ELBA
[2017-03-07] MEDS: Cefepime 2 GM in Premix Bag 1 BAG IV SCH ×2 (02:17→15:04)
[2017-03-07] MEDS: Levofloxacin/Dextrose 5%-Water 750 MG in Premix Bag 1 BAG IV SCH (02:52)
[2017-03-07] MEDS: Acetaminophen/HYDROcodone 325-10 MG Tab PO PRN ×3 (02:57→20:26)
[2017-03-07 06:25] LABS: CHLORIDE,CL 101 mmol/L (98-110); SODIUM,NA 137 mmol/L (136-146)
[2017-03-07] MEDS: Magnesium Oxide 400 MG Tab PO SCH ×3 (06:38→21:31)
[2017-03-07] MEDS: Omeprazole 20 MG Cap.CR PO SCH (06:38)
[2017-03-07] MEDS ORDERED: Magnesium Sulfate/Water 4 GM in Premix Bag 1 BAG IV ONE (09:07)
[2017-03-07] MEDS: Rosuvastatin 10 MG Tab PO SCH (09:27)
[2017-03-07] MEDS: Potassium Chloride 20 MEQ Tab.ER PO SCH ×2 (09:29→20:28)
[2017-03-07] MEDS: Hydrochlorothiazide 25 MG Tab PO SCH (09:29)
[2017-03-07] MEDS: DULoxetine 60 MG Cap PO SCH ×2 (09:29→20:25)
[2017-03-07] MEDS: Enoxaparin 40 MG/0.4 ML Syringe SUBCUT SCH ×2 (09:30→20:28)
[2017-03-07] MEDS: Folic Acid 1 MG Tab PO SCH (09:30)
[2017-03-07] MEDS: Lisinopril 10 MG Tab PO SCH (09:32)
[2017-03-07] MEDS: amLODIPine 5 MG Tab PO SCH (09:32)
[2017-03-07] MEDS: predniSONE 10 MG Tab PO SCH (09:48)
--- NOTE | 2017-03-07 12:01 | PCM.PN ---
<Lebron eMrcedes - Last Filed: 03/07/17 11:57> - General Info Date of Service: 03/07/17 Admission Dx/Problem (Free Text): Admission Diagnosis/Problem Admission Diagnosis/Problem Pneumonia Subjective Update: Patient is in much better since admission. She notes her work of breathing is improved. She is tolerating oral intake and voiding appropriately. She is ambulating with some mild shortness of breath. Functional Status: Reports: pain controlled, tolerating diet, ambulating, urinating - Review of Systems General: Reports: Weakness HEENT: Reports: no symptoms Pulmonary: Reports: shortness of breath (Improving) Cardiovascular: Reports: No Symptoms Gastrointestinal: Reports: No symptoms Genitourinary: Reports: no symptoms Musculoskeletal: Reports: no symptoms Skin: Reports: no symptoms Neurological: Reports: No Symptoms Psychiatric: Reports: no symptoms - Patient Data Vitals - most recent: Last Vital Signs Temp 97.5 F 03/07/17 11:30 Pulse 106 H 03/07/17 11:30 Resp 18 03/07/17 11:30 BP 106/59 L 03/07/17 11:30 Pulse Ox 90 L 03/07/17 11:30 Weight - most recent: 81.511 kg I&O - last 24 hours: Intake & Output 03/06/17 03/07/17 03/07/17 22:59 06:59 14:59 Intake Total 950 1200 Output Total 2300 400 Balance -1350 800 Lab Results last 24 hrs: Laboratory Results - last 24 hr 03/07/17 Range/Units 05:30 Sodium 137 (136-146) mmol/L Potassium 4.1 (3.5-5.1) mmol/L Chloride 101 (98-110) mmol/L Carbon Dioxide 26 (21-31) mmol/L BUN 11 (6.0-23.0) mg/dL Creatinine 0.7 (0.6-1.5) mg/dL Est Cr Clr Drug Dosing 71.96 mL/min Estimated GFR (MDRD) > 60.0 ml/min Glucose 85 (60-110) mg/dL Calcium 9.2 (8.8-10.8) mg/dL Magnesium 1.4 L (1.5-2.3) mEq/L Kj Results last 24 hrs: Microbiology 03/06/17 03:25 Aerobic Blood Culture - Preliminary Blood - Venous NO GROWTH AFTER 1 DAY Anaerobic Blood Culture - Preliminary NO GROWTH AFTER 1 DAY 03/06/17 03:40 Aerobic Blood Culture - Preliminary Blood - Venous - Lab Draw NO GROWTH AFTER 1 DAY Anaerobic Blood Culture - Preliminary NO GROWTH AFTER 1 DAY Med Orders - Current: Current Medications Hydrocodone Bitart/Acetaminophen ([place] 325-10 Mg) 1 tab PO Q6H PRN PRN Reason: Pain Last Admin: 03/07/17 09:33 Dose: 1 tab Albuterol/Ipratropium (Duoneb 3.0-0.5 Mg/3 Ml) 3 ml NEB Q4HRRT PRN PRN Reason: Shortness Of Breath/wheezing Amlodipine Besylate (Norvasc) 5 mg PO DAILY [facility] Last Admin: 03/07/17 09:32 Dose: 5 mg Duloxetine HCl (Cymbalta) 60 mg PO BID [facility] Last Admin: 03/07/17 09:29 Dose: 60 mg Enoxaparin Sodium (Lovenox) 40 mg SUBCUT Q12HR [facility] Last Admin: 03/07/17 09:30 Dose: 40 mg Folic Acid (Folic Acid) 1 mg PO DAILY [facility] Last Admin: 03/07/17 09:30 Dose: Not Given Hydrochlorothiazide (Hydrochlorothiazide) 25 mg PO DAILY [facility] Last Admin: 03/07/17 09:29 Dose: 25 mg Cefepime HCl 2 gm/ Premix 50 mls @ 100 mls/hr IV Q12H [facility] Last Admin: 03/07/17 02:17 Dose: 100 mls/hr Levofloxacin/Dextrose 750 mg/ (Premix) 150 mls @ 150 mls/hr IV Q24H [facility] Last Admin: 03/07/17 02:52 Dose: 150 mls/hr Magnesium Sulfate 4 gm/ Premix 100 mls @ 25 mls/hr IV ONETIME ONE Stop: 03/07/17 13:06 Last Admin: 03/07/17 09:17 Dose: 25 mls/hr Lidocaine HCl (Xylocaine 2% Viscous) 15 ml PO ASDIRECTED PRN PRN Reason: Dyspepsia Lisinopril (Prinivil) 10 mg PO DAILY [facility] Last Admin: 03/07/17 09:32 Dose: 10 mg Lorazepam (Ativan) 1 mg PO TID PRN PRN Reason: ANXIETY Last Admin: 03/05/17 21:22 Dose: 1 mg Magnesium Oxide (Magnesium Oxide) 800 mg PO TID [facility] Last Admin: 03/07/17 06:38 Dose: 800 mg Omeprazole (Omeprazole) 20 mg PO ACBREAKFAST [facility] Last Admin: 03/07/17 06:38 Dose: 20 mg Potassium Chloride (Klor-Con M20) 20 meq PO BID [facility] Last Admin: 03/07/17 09:29 Dose: 20 meq Prednisone (Prednisone) 10 mg PO WITHBREAKFAST [facility] Last Admin: 03/07/17 09:48 Dose: 10 mg Rosuvastatin Calcium (Crestor) 40 mg PO DAILY [facility] Last Admin: 03/07/17 09:27 Dose: 40 mg Sodium Chloride (Saline Flush) 10 ml FLUSH ASDIRECTED PRN PRN Reason: Keep Vein Open Sodium Chloride (Saline Flush) 2.5 ml FLUSH ASDIRECTED PRN PRN Reason: Keep Vein Open Discontinued Medications Albuterol/Ipratropium (Duoneb 3.0-0.5 Mg/3 Ml) 3 ml NEB ONETIME ONE Stop: 03/05/17 17:27 Last Admin: 03/05/17 18:05 Dose: 3 ml Sodium Chloride (Normal Saline) 1,000 mls @ 125 mls/hr IV STAT [facility] Last Admin: 03/05/17 17:54 Dose: 125 mls/hr Magnesium Sulfate 2 gm/ Premix 50 mls @ 50 mls/hr IV ONETIME ONE Stop: 03/05/17 21:29 Last Admin: 03/05/17 21:21 Dose: 50 mls/hr Sodium Chloride (Normal Saline) 1,000 mls @ 100 mls/hr IV ASDIRECTED [facility] Stop: 03/06/17 11:44 Last Admin: 03/06/17 01:42 Dose: 100 mls/hr Iopamidol (Isovue-370 (76%)) 47 ml IV ONETIME STA Stop: 03/05/17 22:41 Last Admin: 03/05/17 22:41 Dose: 47 ml - Exam Quality Assessment: supplemental oxygen (1.5 L nasal cannula), DVT prophylaxis ( scd's, Lovenox) General: alert, oriented, cooperative, no acute distress Lungs: Clear to auscultation, Normal respiratory effort Cardiovascular: Regular Rhythm, Tachycardia (103) Abdomen: bowel sounds present, soft, no tenderness, no distension Extremities: no edema, no calf tenderness Peripheral Pulses: 2+: radial (L), radial (R) Skin: warm, dry, intact Neurological: no new focal deficit Psy/Mental Status: alert, normal affect, normal mood - Problem List & Annotations (1) Pneumonia SNOMED Code(s): 552819833 Code(s): J18.9 - PNEUMONIA, UNSPECIFIED ORGANISM Status: Acute Current Visit: Yes (2) Hypoxemia SNOMED Code(s): 396573555 Code(s): R09.02 - HYPOXEMIA Status: Acute Current Visit: Yes (3) Metastatic lung cancer (metastasis from lung to other site) SNOMED Code(s): 522116839, 377231236 Code(s): C34.90 - MALIGNANT NEOPLASM OF UNSP PART OF UNSP BRONCHUS OR LUNG Status: Acute Current Visit: Yes - Problem List Review Problem List Initiated/Reviewed/Updated: Yes - My Orders Last 24 Hours: My Active Orders 03/07/17 09:07 Magnesium Sulfate/Water [Magnesium Sulfate 4 GM in Water 100 ML] 4 gm Premix Bag 1 bag IV ONETIME - Plan Plan:: #1. Healthcare associated pneumonia: -Continue with IV Levaquin 750 mg daily as well as IV cefepime 2 g twice a day. -Blood cell count is within normal limits. -Blood cultures x1 are negative. Disposition: One to 2 days pending improvement. <Bill Landeros O - Last Filed: 03/08/17 14:04> - Patient Data Vitals - most recent: Last Vital Signs Temp 35.7 C 03/08/17 04:00 Pulse 92 03/08/17 04:00 Resp 16 03/08/17 04:00 BP 109/59 L 03/08/17 08:58 Pulse Ox 93 L 03/08/17 04:00 I&O - last 24 hours: Intake & Output 03/07/17 03/08/17 03/08/17 22:59 06:59 14:59 Intake Total 740 690 Output Total 1350 1300 Balance -610 -610 Lab Results last 24 hrs: Laboratory Results - last 24 hr 03/08/17 03/08/17 Range/Units 04:07 04:07 WBC 4.13 (4.0-11.0) K/uL RBC 4.76 (4.30-5.90) M/uL Hgb 11.3 L (12.0-16.0) g/dL Hct 37.3 (36.0-46.0) % MCV 78.4 L (80.0-98.0) fL MCH 23.7 L (27.0-32.0) pg MCHC 30.3 L (31.0-37.0) g/dL RDW Std Deviation 47.7 (28.0-62.0) fl RDW Coeff of Ge 17 H (11.0-15.0) % Plt Count 175 (150-400) K/uL MPV 10.00 (7.40-12.00) fL Add Manual Diff YES Neutrophils % (Manual) 80 (48.0-80.0) % Lymphocytes % (Manual) 13 L (16.0-40.0) % Monocytes % (Manual) 6 (0.0-15.0) % Metamyelocytes % 1 % Nucleated RBC % 0.0 /100WBC Absolute Seg Neuts 3.3 Lymphocytes # (Manual) 0.5 Monocytes # (Manual) 0.2 Absolute Metamyelocyte 0 Nucleated RBCs # 0 K/uL Sodium 138 (136-146) mmol/L Potassium 4.3 (3.5-5.1) mmol/L Chloride 103 (98-110) mmol/L Carbon Dioxide 22 (21-31) mmol/L BUN 10 (6.0-23.0) mg/dL Creatinine 0.7 (0.6-1.5) mg/dL Est Cr Clr Drug Dosing 71.96 mL/min Estimated GFR (MDRD) > 60.0 ml/min Glucose 114 H (60-110) mg/dL Calcium 9.2 (8.8-10.8) mg/dL Magnesium 1.9 (1.5-2.3) mEq/L Kj Results last 24 hrs: Microbiology 03/06/17 03:25 Aerobic Blood Culture - Preliminary Blood - Venous NO GROWTH AFTER 2 DAYS Anaerobic Blood Culture - Preliminary NO GROWTH AFTER 2 DAYS 03/06/17 03:40 Aerobic Blood Culture - Preliminary Blood - Venous - Lab Draw NO GROWTH AFTER 2 DAYS Anaerobic Blood Culture - Preliminary NO GROWTH AFTER 2 DAYS Med Orders - Current: Current Medications Hydrocodone Bitart/Acetaminophen ([place] 325-10 Mg) 1 tab PO Q6H PRN PRN Reason: Pain Last Admin: 03/07/17 20:26 Dose: 1 tab Albuterol/Ipratropium (Duoneb 3.0-0.5 Mg/3 Ml) 3 ml NEB Q4HRRT PRN PRN Reason: Shortness Of Breath/wheezing Amlodipine Besylate (Norvasc) 5 mg PO DAILY [facility] Last Admin: 03/08/17 08:57 Dose: 5 mg Duloxetine HCl (Cymbalta) 60 mg PO BID [facility] Last Admin: 03/08/17 08:54 Dose: 60 mg Enoxaparin Sodium (Lovenox) 40 mg SUBCUT Q12HR [facility] Last Admin: 03/08/17 08:55 Dose: 40 mg Folic Acid (Folic Acid) 1 mg PO DAILY [facility] Last Admin: 03/08/17 08:53 Dose: 1 mg Hydrochlorothiazide (Hydrochlorothiazide) 25 mg PO DAILY [facility] Last Admin: 03/08/17 08:53 Dose: 25 mg Cefepime HCl 2 gm/ Premix 50 mls @ 100 mls/hr IV Q12H [facility] Last Admin: 03/08/17 02:35 Dose: 100 mls/hr Levofloxacin/Dextrose 750 mg/ (Premix) 150 mls @ 150 mls/hr IV Q24H [facility] Last Admin: 03/08/17 03:17 Dose: 150 mls/hr Lidocaine HCl (Xylocaine 2% Viscous) 15 ml PO ASDIRECTED PRN PRN Reason: Dyspepsia Last Admin: 03/08/17 09:04 Dose: 15 ml Lisinopril (Prinivil) 10 mg PO DAILY [facility] Last Admin: 03/08/17 08:58 Dose: 10 mg Lorazepam (Ativan) 1 mg PO TID PRN PRN Reason: ANXIETY Last Admin: 03/05/17 21:22 Dose: 1 mg Magnesium Oxide (Magnesium Oxide) 800 mg PO TID [facility] Last Admin: 03/08/17 06:35 Dose: 800 mg Omeprazole (Omeprazole) 20 mg PO ACBREAKFAST [facility] Last Admin: 03/08/17 06:35 Dose: 20 mg Potassium Chloride (Klor-Con M20) 20 meq PO BID [facility] Last Admin: 03/08/17 08:53 Dose: 20 meq Prednisone (Prednisone) 10 mg PO WITHBREAKFAST [facility] Last Admin: 03/08/17 08:54 Dose: 10 mg Rosuvastatin Calcium (Crestor) 40 mg PO DAILY [facility] Last Admin: 03/08/17 08:52 Dose: 40 mg Sodium Chloride (Saline Flush) 10 ml FLUSH ASDIRECTED PRN PRN Reason: Keep Vein Open Sodium Chloride (Saline Flush) 2.5 ml FLUSH ASDIRECTED PRN PRN Reason: Keep Vein Open Discontinued Medications Albuterol/Ipratropium (Duoneb 3.0-0.5 Mg/3 Ml) 3 ml NEB ONETIME ONE Stop: 03/05/17 17:27 Last Admin: 03/05/17 18:05 Dose: 3 ml Sodium Chloride (Normal Saline) 1,000 mls @ 125 mls/hr IV STAT [facility] Last Admin: 03/05/17 17:54 Dose: 125 mls/hr Magnesium Sulfate 2 gm/ Premix 50 mls @ 50 mls/hr IV ONETIME ONE Stop: 03/05/17 21:29 Last Admin: 03/05/17 21:21 Dose: 50 mls/hr Sodium Chloride (Normal Saline) 1,000 mls @ 100 mls/hr IV ASDIRECTED [facility] Stop: 03/06/17 11:44 Last Admin: 03/06/17 01:42 Dose: 100 mls/hr Magnesium Sulfate 4 gm/ Premix 100 mls @ 25 mls/hr IV ONETIME ONE Stop: 03/07/17 13:06 Last Admin: 03/07/17 09:17 Dose: 25 mls/hr Iopamidol (Isovue-370 (76%)) 47 ml IV ONETIME STA Stop: 03/05/17 22:41 Last Admin: 03/05/17 22:41 Dose: 47 ml - Assessment Assessment:: I was present with the resident during the history and exam. I discussed the case with the resident and agree with the findings and plan as documented in the residents note. Bill Landeros MD
[2017-03-08] MEDS: Cefepime 2 GM in Premix Bag 1 BAG IV SCH (02:35)
[2017-03-08] MEDS: Levofloxacin/Dextrose 5%-Water 750 MG in Premix Bag 1 BAG IV SCH (03:17)
[2017-03-08 05:09] LABS: CHLORIDE,CL 103 mmol/L (98-110); SODIUM,NA 138 mmol/L (136-146)
[2017-03-08] MEDS: Magnesium Oxide 400 MG Tab PO SCH ×2 (06:35→16:41)
[2017-03-08] MEDS: Omeprazole 20 MG Cap.CR PO SCH (06:35)
[2017-03-08] MEDS: Rosuvastatin 10 MG Tab PO SCH (08:52)
[2017-03-08] MEDS: Potassium Chloride 20 MEQ Tab.ER PO SCH (08:53)
[2017-03-08] MEDS: Hydrochlorothiazide 25 MG Tab PO SCH (08:53)
[2017-03-08] MEDS: Folic Acid 1 MG Tab PO SCH (08:53)
[2017-03-08] MEDS: DULoxetine 60 MG Cap PO SCH (08:54)
[2017-03-08] MEDS: predniSONE 10 MG Tab PO SCH (08:54)
[2017-03-08] MEDS: Enoxaparin 40 MG/0.4 ML Syringe SUBCUT SCH (08:55)
[2017-03-08] MEDS: amLODIPine 5 MG Tab PO SCH (08:57)
[2017-03-08] MEDS: Lisinopril 10 MG Tab PO SCH (08:58)
[2017-03-08 14:07] VITALS: BP 110/63
--- NOTE | 2017-03-10 15:48 | PCM.DCSUM1 ---
<Lebron Mercedes - Last Filed: 03/10/17 15:43> Discharge Summary - Hospital Course Free Text/Narrative:: Admission diagnoses: #1. Community-acquired pneumonia with dyspnea #2. Stage IV lung cancer Discharge diagnoses: #1. peritoneal require pneumonia with dyspnea, improved #2. Stage IV lung cancer #3. Lactic acidosis #4. Hypomagnesemia 61-year-old female with a current diagnosis of stage IV lung cancer that was admitted with pneumonia as evidenced on chest x-ray. Patient was started on IV Levaquin and IV cefepime. Her white blood cell count was within normal limits during admission and remained so during admission. Blood cultures were negative. Influenza swab was negative. Patient was requiring 1-2 L of oxygen via nasal cannula to maintain O2 saturation greater than 90%. With treatment of her pneumonia, her dyspnea with exertion improved but she still was requiring 1- 2 L of oxygen at time of discharge. BNP was negative. Lactate was elevated at 3 but it improved to 0.7. Magnesium was low 1.4 and replenished with IV magnesium which improved her magnesium is 1.9. Troponins were negative. At the time of discharge the patient was ambulating without assistance, tolerating oral intake without nausea, vomiting, and abdominal pain and denied any chest pain, palpitations. - Discharge Data Discharge Date: 03/08/17 Discharge Disposition: Home, Self-Care 01 Condition: Fair - Discharge Diagnosis/Problem(s) (1) Pneumonia SNOMED Code(s): 201002603 ICD Code: J18.9 - PNEUMONIA, UNSPECIFIED ORGANISM Status: Acute (2) Hypoxemia SNOMED Code(s): 480683482 ICD Code: R09.02 - HYPOXEMIA Status: Acute (3) Metastatic lung cancer (metastasis from lung to other site) SNOMED Code(s): 006070211, 175028116 ICD Code: C34.90 - MALIGNANT NEOPLASM OF UNSP PART OF UNSP BRONCHUS OR LUNG Status: Acute - Patient Instructions Diet: Heart Healthy Diet Activity: As Tolerated Driving: May Drive Today Showering/Bathing: May Shower Notify Provider of: Fever, Increased Pain, Nausea and/or Vomiting - Discharge Plan Prescriptions/Med Rec: Levofloxacin [Levaquin] 750 mg PO DAILY #7 tablet Home Medications: Home Meds Calcium Carbonate/Vitamin D3 [Calcium 600 + Vit D Tablet] 1 tab PO DAILY [History] DULoxetine [Cymbalta] 60 mg PO BID 07/23/16 [History] Folic Acid 1 mg PO DAILY 07/23/16 [History] Hydrochlorothiazide 25 mg PO DAILY 07/23/16 [History] Hydrocodone/Acetaminophen [Timewell 10-325] 1 tab PO Q6H PRN 07/23/16 [History] LORazepam 1 mg PO TID PRN 07/23/16 [History] Lansoprazole [Prevacid] 15 mg PO ACBREAKFAST 07/23/16 [History] Lisinopril 10 mg PO DAILY 07/23/16 [History] Magnesium Oxide 800 mg PO BID 07/23/16 [History] Potassium Chloride 20 meq PO BID 07/23/16 [History] Prednisone [IMW: predniSONE] 10 mg PO DAILY 07/23/16 [History] Rosuvastatin [Crestor] 40 mg PO DAILY 07/23/16 [History] amLODIPine Besylate [Amlodipine Besylate] 5 mg PO DAILY 07/23/16 [History] Levofloxacin [Levaquin] 750 mg PO DAILY #7 tablet 03/08/17 [Rx] Patient Handouts: Levofloxacin tablets, Community-Acquired Pneumonia, Adult, [id number] Forms: ED Department Discharge Referrals: Sathish Quintero MD [Physician] - 03/18/17 9:15 am - Discharge Summary/Plan Comment DC Time >30 min.: No Discharge Summary/Plan Comment: Admission diagnoses: #1. Community-acquired pneumonia with dyspnea #2. Stage IV lung cancer Discharge diagnoses: #1. peritoneal require pneumonia with dyspnea, improved #2. Stage IV lung cancer #3. Lactic acidosis #4. Hypomagnesemia 61-year-old female with a current diagnosis of stage IV lung cancer that was admitted with pneumonia as evidenced on chest x-ray. Patient was started on IV Levaquin and IV cefepime. Her white blood cell count was within normal limits during admission and remained so during admission. Blood cultures were negative. Influenza swab was negative. Patient was requiring 1-2 L of oxygen via nasal cannula to maintain O2 saturation greater than 90%. With treatment of her pneumonia, her dyspnea with exertion improved but she still was requiring 1- 2 L of oxygen at time of discharge. At times she was able to maintain O2 saturation greater than 90% on room air. In ambulatory test was done and the patient was 83% on rheumatic exercise/walking. Her O2 saturation increased to 89 % on 4 L nasal cannula with exercise/walking. BNP was negative. Lactate was elevated at 3 but it improved to 0.7. Magnesium was low 1.4 and replenished with IV magnesium which improved her magnesium is 1.9. Troponins were negative. At the time of discharge the patient was ambulating but did require O2, tolerating oral intake without nausea, vomiting, and abdominal pain and denied any chest pain, palpitations. Discharge plan: #1. Patient has a followup appointment with her oncologist tomorrow March 09, 2017. #2. Patient will followup with her PCP, Dr. Quintero, on March 18, 2017. #3. Patient discharged home on Levaquin 750 mg daily, 7 tabs, zero refills. #4. Patient was discharged home on supplemental O2 according to results of ambulatory testing. It is recommended that the patient use 1-3 L per minute nasal cannula continuously, 1-4 L per minute at night and one to 4 L per minute with activity. - Patient Data Vitals - Most Recent: Last Vital Signs Temp 96.1 F 03/08/17 12:00 Pulse 108 H 03/08/17 12:00 Resp 16 03/08/17 12:00 BP 110/63 03/08/17 12:00 Pulse Ox 94 L 03/08/17 12:00 Weight - Most Recent: 81.511 kg ELBA Results - Last 24 hrs: Microbiology 03/06/17 03:25 Aerobic Blood Culture - Preliminary Blood - Venous NO GROWTH AFTER 4 DAYS Anaerobic Blood Culture - Preliminary NO GROWTH AFTER 4 DAYS 03/06/17 03:40 Aerobic Blood Culture - Preliminary Blood - Venous - Lab Draw NO GROWTH AFTER 4 DAYS Anaerobic Blood Culture - Preliminary NO GROWTH AFTER 4 DAYS Med Orders - Current: Current Medications Discontinued Medications Hydrocodone Bitart/Acetaminophen (Timewell 325-10 Mg) 1 tab PO Q6H PRN PRN Reason: Pain Last Admin: 03/07/17 20:26 Dose: 1 tab Albuterol/Ipratropium (Duoneb 3.0-0.5 Mg/3 Ml) 3 ml NEB ONETIME ONE Stop: 03/05/17 17:27 Last Admin: 03/05/17 18:05 Dose: 3 ml Albuterol/Ipratropium (Duoneb 3.0-0.5 Mg/3 Ml) 3 ml NEB Q4HRRT PRN PRN Reason: Shortness Of Breath/wheezing Amlodipine Besylate (Norvasc) 5 mg PO DAILY [facility] Last Admin: 03/08/17 08:57 Dose: 5 mg Duloxetine HCl (Cymbalta) 60 mg PO BID [facility] Last Admin: 03/08/17 08:54 Dose: 60 mg Enoxaparin Sodium (Lovenox) 40 mg SUBCUT Q12HR [facility] Last Admin: 03/08/17 08:55 Dose: 40 mg Folic Acid (Folic Acid) 1 mg PO DAILY [facility] Last Admin: 03/08/17 08:53 Dose: 1 mg Hydrochlorothiazide (Hydrochlorothiazide) 25 mg PO DAILY [facility] Last Admin: 03/08/17 08:53 Dose: 25 mg Sodium Chloride (Normal Saline) 1,000 mls @ 125 mls/hr IV STAT [facility] Last Admin: 03/05/17 17:54 Dose: 125 mls/hr Magnesium Sulfate 2 gm/ Premix 50 mls @ 50 mls/hr IV ONETIME ONE Stop: 03/05/17 21:29 Last Admin: 03/05/17 21:21 Dose: 50 mls/hr Sodium Chloride (Normal Saline) 1,000 mls @ 100 mls/hr IV ASDIRECTED [facility] Stop: 03/06/17 11:44 Last Admin: 03/06/17 01:42 Dose: 100 mls/hr Cefepime HCl 2 gm/ Premix 50 mls @ 100 mls/hr IV Q12H [facility] Last Admin: 03/08/17 02:35 Dose: 100 mls/hr Levofloxacin/Dextrose 750 mg/ (Premix) 150 mls @ 150 mls/hr IV Q24H [facility] Last Admin: 03/08/17 03:17 Dose: 150 mls/hr Magnesium Sulfate 4 gm/ Premix 100 mls @ 25 mls/hr IV ONETIME ONE Stop: 03/07/17 13:06 Last Admin: 03/07/17 09:17 Dose: 25 mls/hr Iopamidol (Isovue-370 (76%)) 47 ml IV ONETIME STA Stop: 03/05/17 22:41 Last Admin: 03/05/17 22:41 Dose: 47 ml Lidocaine HCl (Xylocaine 2% Viscous) 15 ml PO ASDIRECTED PRN PRN Reason: Dyspepsia Last Admin: 03/08/17 09:04 Dose: 15 ml Lisinopril (Prinivil) 10 mg PO DAILY [facility] Last Admin: 03/08/17 08:58 Dose: 10 mg Lorazepam (Ativan) 1 mg PO TID PRN PRN Reason: ANXIETY Last Admin: 03/05/17 21:22 Dose: 1 mg Magnesium Oxide (Magnesium Oxide) 800 mg PO TID [facility] Last Admin: 03/08/17 16:41 Dose: Not Given Omeprazole (Omeprazole) 20 mg PO ACBREAKFAST [facility] Last Admin: 03/08/17 06:35 Dose: 20 mg Potassium Chloride (Klor-Con M20) 20 meq PO BID [facility] Last Admin: 03/08/17 08:53 Dose: 20 meq Prednisone (Prednisone) 10 mg PO WITHBREAKFAST [facility] Last Admin: 03/08/17 08:54 Dose: 10 mg Rosuvastatin Calcium (Crestor) 40 mg PO DAILY [facility] Last Admin: 03/08/17 08:52 Dose: 40 mg Sodium Chloride (Saline Flush) 10 ml FLUSH ASDIRECTED PRN PRN Reason: Keep Vein Open Sodium Chloride (Saline Flush) 2.5 ml FLUSH ASDIRECTED PRN PRN Reason: Keep Vein Open *Q Meaningful Use (DIS) - VTE *Q VTE Criteria *Q: - Stroke *Q Stroke Criteria *Q: - AMI *Q AMI Criteria *Q: <Bill Landeros - Last Filed: 03/10/17 16:10> Discharge Summary - Hospital Course Free Text/Narrative:: I was present with the resident during the history and exam. I discussed the case witht he resident and agree with the findings and plan as documented in the resident's note - Patient Data Vitals - Most Recent: Last Vital Signs Temp 35.6 C 03/08/17 12:00 Pulse 108 H 03/08/17 12:00 Resp 16 03/08/17 12:00 BP 110/63 03/08/17 12:00 Pulse Ox 94 L 03/08/17 12:00 ELBA Results - Last 24 hrs: Microbiology 03/06/17 03:25 Aerobic Blood Culture - Preliminary Blood - Venous NO GROWTH AFTER 4 DAYS Anaerobic Blood Culture - Preliminary NO GROWTH AFTER 4 DAYS 03/06/17 03:40 Aerobic Blood Culture - Preliminary Blood - Venous - Lab Draw NO GROWTH AFTER 4 DAYS Anaerobic Blood Culture - Preliminary NO GROWTH AFTER 4 DAYS Med Orders - Current: Current Medications Discontinued Medications Hydrocodone Bitart/Acetaminophen (Timewell 325-10 Mg) 1 tab PO Q6H PRN PRN Reason: Pain Last Admin: 03/07/17 20:26 Dose: 1 tab Albuterol/Ipratropium (Duoneb 3.0-0.5 Mg/3 Ml) 3 ml NEB ONETIME ONE Stop: 03/05/17 17:27 Last Admin: 03/05/17 18:05 Dose: 3 ml Albuterol/Ipratropium (Duoneb 3.0-0.5 Mg/3 Ml) 3 ml NEB Q4HRRT PRN PRN Reason: Shortness Of Breath/wheezing Amlodipine Besylate (Norvasc) 5 mg PO DAILY [facility] Last Admin: 03/08/17 08:57 Dose: 5 mg Duloxetine HCl (Cymbalta) 60 mg PO BID [facility] Last Admin: 03/08/17 08:54 Dose: 60 mg Enoxaparin Sodium (Lovenox) 40 mg SUBCUT Q12HR [facility] Last Admin: 03/08/17 08:55 Dose: 40 mg Folic Acid (Folic Acid) 1 mg PO DAILY [facility] Last Admin: 03/08/17 08:53 Dose: 1 mg Hydrochlorothiazide (Hydrochlorothiazide) 25 mg PO DAILY [facility] Last Admin: 03/08/17 08:53 Dose: 25 mg Sodium Chloride (Normal Saline) 1,000 mls @ 125 mls/hr IV STAT [facility] Last Admin: 03/05/17 17:54 Dose: 125 mls/hr Magnesium Sulfate 2 gm/ Premix 50 mls @ 50 mls/hr IV ONETIME ONE Stop: 03/05/17 21:29 Last Admin: 03/05/17 21:21 Dose: 50 mls/hr Sodium Chloride (Normal Saline) 1,000 mls @ 100 mls/hr IV ASDIRECTED [facility] Stop: 03/06/17 11:44 Last Admin: 03/06/17 01:42 Dose: 100 mls/hr Cefepime HCl 2 gm/ Premix 50 mls @ 100 mls/hr IV Q12H [facility] Last Admin: 03/08/17 02:35 Dose: 100 mls/hr Levofloxacin/Dextrose 750 mg/ (Premix) 150 mls @ 150 mls/hr IV Q24H [facility] Last Admin: 03/08/17 03:17 Dose: 150 mls/hr Magnesium Sulfate 4 gm/ Premix 100 mls @ 25 mls/hr IV ONETIME ONE Stop: 03/07/17 13:06 Last Admin: 03/07/17 09:17 Dose: 25 mls/hr Iopamidol (Isovue-370 (76%)) 47 ml IV ONETIME STA Stop: 03/05/17 22:41 Last Admin: 03/05/17 22:41 Dose: 47 ml Lidocaine HCl (Xylocaine 2% Viscous) 15 ml PO ASDIRECTED PRN PRN Reason: Dyspepsia Last Admin: 03/08/17 09:04 Dose: 15 ml Lisinopril (Prinivil) 10 mg PO DAILY [facility] Last Admin: 03/08/17 08:58 Dose: 10 mg Lorazepam (Ativan) 1 mg PO TID PRN PRN Reason: ANXIETY Last Admin: 03/05/17 21:22 Dose: 1 mg Magnesium Oxide (Magnesium Oxide) 800 mg PO TID [facility] Last Admin: 03/08/17 16:41 Dose: Not Given Omeprazole (Omeprazole) 20 mg PO ACBREAKFAST [facility] Last Admin: 03/08/17 06:35 Dose: 20 mg Potassium Chloride (Klor-Con M20) 20 meq PO BID [facility] Last Admin: 03/08/17 08:53 Dose: 20 meq Prednisone (Prednisone) 10 mg PO WITHBREAKFAST [facility] Last Admin: 03/08/17 08:54 Dose: 10 mg Rosuvastatin Calcium (Crestor) 40 mg PO DAILY [facility] Last Admin: 03/08/17 08:52 Dose: 40 mg Sodium Chloride (Saline Flush) 10 ml FLUSH ASDIRECTED PRN PRN Reason: Keep Vein Open Sodium Chloride (Saline Flush) 2.5 ml FLUSH ASDIRECTED PRN PRN Reason: Keep Vein Open *Q Meaningful Use (DIS) - VTE *Q VTE Criteria *Q: - Stroke *Q Stroke Criteria *Q: - AMI *Q AMI Criteria *Q:
== END 2017-03-08 14:30 | disposition home or self-care (01) | DRG 139 ==
LOC: MW.ED 17:20 → MW.MS 19:02 → OBSVTOIN 20:36 → MW.MS 03-06 03:17
PROVIDERS: ADMIT Internal Medicine; ATTEND Internal Medicine
DX: J18.9 Pneumonia, unspecified organism (principal); C34.90 Malignant neoplasm of unspecified part of unspecified bronchus or lung; R09.02 Hypoxemia; E87.2 Acidosis; E83.42 Hypomagnesemia; E78.00 Pure hypercholesterolemia, unspecified; I10 Essential (primary) hypertension; F41.8 Other specified anxiety disorders; Z79.899 Other long term (current) drug therapy; Z88.8 Allergy status to other drugs, medicaments and biological substances; Z66 Do not resuscitate
CPT/HCPCS: 36410; 36415; 36600; 71010; 71010-26; 80048; 80053; 81001; 82803; 83605; 83735; 83880; 84484; 85025; 85610; 87040; 87804; 93005; 96360; 96361; 99285; 99285-25; A9270-GY; J0692; J1650; J1956; J3475; J7040; Q9967

== ENCOUNTER → 2017-03-28 | Outpatient (CLI) | payer BC ==
[~2017-03-28] MED LIST: Iopamidol 755 MG/ML 500 ML Multipack Bottle IVPUSH STA
--- NOTE | 2017-03-28 15:20 | CT ---
EXAMINATION: CT chest with contrast HISTORY: Lung cancer COMPARISON: 12/15/2016 TECHNIQUE: Axial CT images obtained through the chest following the administration of 75 mL of Isovu e-370 in the right anterior fossa. Coronal and sagittal reconstructions obtained. FINDINGS: The previously demonstrated right retrohilar mass has increased in size, now measuring rou ghly 5.9 x 3.6 cm. There is a trace right pleural effusion. Scattered areas of groundglass are again noted bilaterally however the overall appearance and number appear increased. The heart is normal i n size without a pericardial effusion. Small nonpathologically enlarged mediastinal lymph nodes are noted. The thoracic aorta is normal in caliber. The main and central pulmonary arteries are patent. The central airways are clear. There is a left-sided portacatheter. There is a stable nodule within the left breast. No axillary lymphadenopathy. Visualized images of the upper abdomen appear normal. No suspicious osseous abnormalities. IMPRESSION: 1. Enlarging right retrohilar mass with a trace right pleural effusion. 2. Increasing scattered areas of groundglass within the lungs bilaterally, likely metastatic disease .
== END ==
LOC: MW.DI 09:50
PROVIDERS: ATTEND Internal Medicine Hematology & Oncology
DX: C34.90 Malignant neoplasm of unspecified part of unspecified bronchus or lung (principal); R91.8 Other nonspecific abnormal finding of lung field
CPT/HCPCS: 71260; Q9967

== ENCOUNTER 2017-11-01 13:13 | Emergency (ER) | payer BC ==
[2017-11-01 13:31] VITALS: BP 120/56
--- NOTE | 2017-11-01 14:29 | EDM.PDOC ---
ED HPI GENERAL MEDICAL PROBLEM - General Chief Complaint: General Stated Complaint: TOOTH ABCESS Time Seen by Provider: 11/01/17 14:09 - History of Present Illness INITIAL COMMENTS - FREE TEXT/NARRATIVE: HISTORY AND PHYSICAL: History of present illness: Patient is a 62-year-old white female with history of stage IV lung cancer presents with concern of dental abscess the spinal over last day or 2 she has been no fever chills nausea vomiting or other complaints. She reports allergies to erythromycin denies any allergy to penicillin. Review of systems: As per history of present illness and below otherwise all systems reviewed and negative. Past medical history: As per history of present illness and as reviewed below otherwise noncontributory. Surgical history: As per history of present illness and as reviewed below otherwise noncontributory. Social history: No reported history of drug or alcohol abuse. Family history: As per history of present illness and as reviewed below otherwise noncontributory. Physical exam: HEENT: Atraumatic, normocephalic, pupils reactive, negative for conjunctival pallor or scleral icterus, mucous membranes moist, throat clear, neck supple, nontender, trachea midline. Patient has some generally poor dentition with multiple dental caries she is some swelling in her right mandibular region and gingival edema in the lower molar region. Lungs: Clear to auscultation, breath sounds equal bilaterally, chest nontender. Heart: S1S2, regular, negative for clicks, rubs, or JVD. Abdomen: Soft, nondistended, nontender. Negative for masses or hepatosplenomegaly. Negative for costovertebral tenderness. Pelvis: Stable nontender. Genitourinary: Deferred. Rectal: Deferred. Extremities: Atraumatic, negative for cords or calf pain. Neurovascular unremarkable. Neuro: Awake, alert, oriented. Cranial nerves II through XII unremarkable. Cerebellum unremarkable. Motor and sensory unremarkable throughout. Exam nonfocal. Diagnostics: None Therapeutics: None Impression: #1 dental abscess #2 history of metastatic lung cancer Definitive disposition and diagnosis as appropriate pending reevaluation and review of above. Right Face Pain Score (Numeric/FACES): 7 - Related Data Allergies Allergy/AdvReac Type Severity Reaction Status Date / Time clarithromycin [From Biaxin] Allergy Hives Verified 11/01/17 13:31 nivolumab [From Opdivo] Allergy Diarrhea Verified 11/01/17 13:31 Home Meds: Home Meds Calcium Carbonate/Vitamin D3 [Calcium 600 + Vit D Tablet] 1 tab PO DAILY [History] DULoxetine [Cymbalta] 60 mg PO BID 07/23/16 [History] Hydrochlorothiazide 25 mg PO DAILY 07/23/16 [History] Hydrocodone/Acetaminophen [Logan 10-325] 1 tab PO Q6H PRN 07/23/16 [History] LORazepam 1 mg PO TID PRN 07/23/16 [History] Lansoprazole [Prevacid] 15 mg PO ACBREAKFAST 07/23/16 [History] Lisinopril 10 mg PO DAILY 07/23/16 [History] Magnesium Oxide 800 mg PO TID 07/23/16 [History] Potassium Chloride 20 meq PO BID 07/23/16 [History] Rosuvastatin [Crestor] 40 mg PO DAILY 07/23/16 [History] Past Medical History HEENT History: Reports: Impaired Vision Other HEENT History: wears glasses Cardiovascular History: Reports: High Cholesterol, Hypertension Respiratory History: Reports: Other (See Below) Other Respiratory History: lung cancer Gastrointestinal History: Reports: Chronic Diarrhea [employer] History: Reports: Neurological History: Reports: Migraines Psychiatric History: Reports: Anxiety, Depression Oncologic (Cancer) History: Reports: Lung - Infectious Disease History Infectious Disease History: Reports: Mumps - Past Surgical History Respiratory Surgical History: Reports: Lung Biopsies Female Surgical History: Reports: Hysterectomy Social & Family History - Family History Family Medical History: Noncontributory Endocrine/Metabolic: Reports: Diabetes, Type I, Diabetes, type II Oncologic: Reports: Colon - Tobacco Use Smoking Status *Q: Former Smoker Years of Tobacco use: 20 Packs/Tins Daily: 0.5 Used Tobacco, but Quit: Yes Month Tobacco Last Used: 1995 Second Hand Smoke Exposure: No - Caffeine Use Caffeine Use: Reports: Coffee - Recreational Drug Use Recreational Drug Use: No - Living Situation & Occupation Occupation: Retired ED ROS GENERAL - Review of Systems Review Of Systems: ROS reveals no pertinent complaints other than HPI. ED EXAM, GENERAL - Physical Exam Exam: See Below (See dictation) Course - Vital Signs Last Recorded V/S: Last Vital Signs Temp 37.0 C 11/01/17 13:28 Pulse 102 H 11/01/17 13:28 Resp 16 11/01/17 13:28 BP 120/56 L 11/01/17 13:28 Pulse Ox 94 L 11/01/17 13:28 Departure - Departure Time of Disposition: 14:29 Disposition: Home, Self-Care 01 Condition: Good Clinical Impression: Dental abscess, Metastatic cancer - Discharge Information Referrals: Sathish Quintero MD [Primary Care Provider] - Additional Instructions: The following information is given to patients seen in the emergency department who are being discharged to home. This information is to outline your options for follow-up care. We provide all patients seen in our emergency department with a follow-up referral. The need for follow-up, as well as the timing and circumstances, are variable depending upon the specifics of your emergency department visit. If you don't have a primary care physician on staff, we will provide you with a referral. We always advise you to contact your personal physician following an emergency department visit to inform them of the circumstance of the visit and for follow-up with them and/or the need for any referrals to a consulting specialist. The emergency department will also refer you to a specialist when appropriate. This referral assures that you have the opportunity for followup care with a specialist. All of these measure are taken in an effort to provide you with optimal care, which includes your followup. Under all circumstances we always encourage you to contact your private physician who remains a resource for coordinating your care. When calling for followup care, please make the office aware that this follow-up is from your recent emergency room visit. If for any reason you are refused follow-up, please contact the [facility] emergency department at and asked to speak to the emergency department charge nurse. Augmentin as prescribed continue current medications follow-up dentist/primary medical doctor as discussed return as needed as discussed
== END 2017-11-01 14:39 | disposition home or self-care (01) ==
LOC: MW.ED 13:13
DX: K04.7 Periapical abscess without sinus (principal); E78.00 Pure hypercholesterolemia, unspecified; I10 Essential (primary) hypertension; Z87.891 Personal history of nicotine dependence; Z88.8 Allergy status to other drugs, medicaments and biological substances; Z79.899 Other long term (current) drug therapy; Z85.118 Personal history of other malignant neoplasm of bronchus and lung
CPT/HCPCS: 99282; 99283

== ENCOUNTER 2020-08-27 11:56 | Emergency (ER) | payer MEDICARE, OTHER ==
[2020-08-27] MEDS ORDERED: Amoxicillin/Clavulanate K 500-125 MG Tab PO ONE (13:05)
[2020-08-27] MEDS ORDERED: Phenazopyridine 200 MG Tab PO ONE (13:09)
--- NOTE | 2020-08-27 13:09 | EDM.PDOC ---
ED HPI GENERAL MEDICAL PROBLEM - General Chief Complaint: Genitourinary Problem Stated Complaint: POSSIBLE LOW WHITE BLOOD COUNT Time Seen by Provider: 08/27/20 12:20 Source of Information: Reports: Patient History Limitations: Reports: No Limitations - History of Present Illness INITIAL COMMENTS - FREE TEXT/NARRATIVE: HISTORY AND PHYSICAL: History of present illness: Patient is a 65-year-old female who presents to the emergency room with complaints of dysuria, low back/bilateral flank pain and urinary frequency over the past 1 to 2 days. She is concerned she may have a bladder infection. Patient denies any fever, chills, headache, change in vision, syncope or near syncope. Denies any chest pain, neck stiffness/pain, shortness of breath or cough. Denies any nausea, vomiting, diarrhea, constipation or blood in urine or stool. Patient has been eating and drinking appropriately. Patient does have a history of lung cancer, currently receiving treatment for this. Review of systems: As per history of present illness and below otherwise all systems reviewed and negative. Past medical history: As per history of present illness and as reviewed below otherwise nonc ontributory. Surgical history: As per history of present illness and as reviewed below otherwise noncontributory. Social history: See social history for further information Family history: As per history of present illness and as reviewed below otherwise noncontributory. Physical exam: General: Well developed and well nourished. Alert and orientated x 3. Nontoxic in appearance and in no acute distress. Vital signs are stable and have been reviewed by me. Nursing notes were reviewed. HEENT: Atraumatic, normocephalic, pupils equal and reactive bilaterally, negative for conjunctival pallor or scleral icterus, mucous membranes moist, TMs normal bilaterally, throat clear, neck supple, nontender, trachea midline. No drooling or trismus noted. No meningeal signs. No hot potato voice noted. Lungs: Clear to auscultation, breath sounds equal bilaterally, chest nontender. Normal work of breathing, no accessory muscles used. Heart: S1S2, regular rate and rhythm without overt murmur Abdomen: Soft, nondistended, nontender. Negative for masses or hepatosplenomegaly. Negative for costovertebral tenderness. Skin: Intact, warm, dry. No lesions or rashes noted. Hematologic: No petechiae or purpra. Mucosa appropriate color and normal nail bed color and refill. Extremities: Atraumatic, moves all extremities per self without difficulty or deficits, negative for cords or calf pain. Neurovascular unremarkable. Neuro: Awake, alert, oriented. Cranial nerves II through XII unremarkable. Cerebellum unremarkable. Motor and sensory unremarkable throughout. Exam nonfocal. Psychiatric: Mood and affect are appropriate. Normal thought process. Answering questions appropriately. Notes: I have spoken with the patient/caregiver and discussed today's findings, in addition to providing specific details for plan of care. Reassessment at the time of disposition demonstrates that the patient is in no acute distress. The patient has remained stable throughout the entire ED visit and is without o bjective evidence for acute process requiring urgent intervention or hospitalization. The patient is stable for discharge, counseling was provided and we discussed in great detail signs and symptoms that would prompt them to return to the Emergency Department. Medication, follow up and supportive care measures were reviewed and discussed. Voices understanding and is agreeable to plan of care. Denies any further questions or concerns at this time. Diagnostics: UA Therapeutics: Augmentin, Pyridium Prescription: Augmentin, Pyridium Impression: UTI Plan: 1. Today your urine shows a bladder infection. Please take the medication as directed. We have added a urine culture, if the bacteria in your urine shows its resistant we may be calling you to change your prescription. 2. Increase your fluids and you may alternate Tylenol and ibuprofen as needed for pain management. 3. We encourage you to follow up with your primary care provider and/or recommended specialist in the next few days for re-evaluation and further care/management. If your symptoms should worsen, new symptoms develop or any of the signs and symptoms we discussed should arise please return to the emergency room or call 911 (if needed). Definitive disposition and diagnosis as appropriate pending reevaluation and review of above. Bilateral Lower Back Pain Score (Numeric/FACES): 3 - Related Data Allergies Allergy/AdvReac Type Severity Reaction Status Date / Time clarithromycin [From Biaxin] Allergy Hives Verified 08/27/20 12:12 nivolumab [From Opdivo] Allergy Diarrhea Verified 08/27/20 12:12 Home Meds: Home Meds Calcium Carbonate/Vitamin D3 [Calcium 600 + Vit D Tablet] 1 tab PO DAILY 07/23/16 [History] DULoxetine [Cymbalta] 60 mg PO BID 07/23/16 [History] Hydrochlorothiazide 25 mg PO DAILY 07/23/16 [History] Hydrocodone/Acetaminophen [[place] 10-325] 1 tab PO Q6H PRN 07/23/16 [History] LORazepam 1 mg PO TID PRN 07/23/16 [History] Lansoprazole [Prevacid] 15 mg PO ACBREAKFAST 07/23/16 [History] Lisinopril 10 mg PO DAILY 07/23/16 [History] Magnesium Oxide 800 mg PO TID 07/23/16 [History] Potassium Chloride 20 meq PO BID 07/23/16 [History] Rosuvastatin [Crestor] 40 mg PO DAILY 07/23/16 [History] Amoxicillin/Clavulanate K [Augmentin 500-125 MG] 1 tab PO BID 7 Days #14 tablet 08/27/20 [Rx] Phenazopyridine HCl [Pyridium] 100 mg PO TID 2 Days #6 tablet 08/27/20 [Rx] Past Medical History HEENT History: Reports: Impaired Vision Other HEENT History: wears glasses Cardiovascular History: Reports: High Cholesterol, Hypertension Respiratory History: Reports: Other (See Below) Other Respiratory History: lung cancer Gastrointestinal History: Reports: Chronic Diarrhea [employer] History: Reports: Neurological History: Reports: Migraines Psychiatric History: Reports: Anxiety, Depression Oncologic (Cancer) History: Reports: Lung - Infectious Disease History Infectious Disease History: Reports: None - Past Surgical History Respiratory Surgical History: Reports: Lung Biopsies Female Surgical History: Reports: Hysterectomy Social & Family History - Family History Family Medical History: Noncontributory Endocrine/Metabolic: Reports: Diabetes, Type I, Diabetes, type II Oncologic: Reports: Colon - Tobacco Use Tobacco Use Status *Q: Never Tobacco User - Caffeine Use Caffeine Use: Reports: None - Recreational Drug Use Recreational Drug Use: No - Living Situation & Occupation Occupation: Retired ED ROS GENERAL - Review of Systems Review Of Systems: Comprehensive ROS is negative, except as noted in HPI. ED EXAM, RENAL/ - Physical Exam Exam: See Below (See dictation) Course - Vital Signs Last Recorded V/S: Last Vital Signs Temp 96.9 F 08/27/20 12:14 Pulse 89 08/27/20 12:14 Resp 20 08/27/20 12:14 BP 148/63 H 08/27/20 12:14 Pulse Ox 94 L 08/27/20 12:14 - Orders/Labs/Meds Orders: Active Orders 24 hr Category Date Time Status CULTURE URINE [RM] Stat Lab 08/27/20 12:39 Received Labs: Laboratory Tests 08/27/20 Range/Units 12:39 Urine Color YELLOW Urine Appearance SLT CLOUDY Urine pH 8.0 (5.0-8.0) Ur Specific [place] 1.020 (1.001-1.035) Urine Protein 100 H (NEGATIVE) mg/dL Urine Glucose (UA) NEGATIVE (NEGATIVE) mg/dL Urine Ketones NEGATIVE (NEGATIVE) mg/dL Urine Occult Blood MODERATE H (NEGATIVE) Urine Nitrite POSITIVE H (NEGATIVE) Urine Bilirubin NEGATIVE (NEGATIVE) Urine Urobilinogen 0.2 (<2.0) EU/dL Ur Leukocyte Esterase SMALL H (NEGATIVE) Urine RBC 3-6 (0-2/HPF) Urine WBC 50-60 (0-5/HPF) Ur Epithelial Cells MODERATE (NONE-FEW) Urine Bacteria 3+ H (NEGATIVE) Meds: Medications Discontinued Medications Generic Name Dose Route Start Last Admin Trade Name Scottq PRN Reason Stop Dose Admin Amoxicillin/Clavulanate Potassium 1 tab 08/27/20 13:05 Augmentin 500 Mg\125 Mg PO 08/27/20 13:06 ONETIME ONE Phenazopyridine HCl 200 mg 08/27/20 13:09 Pyridium PO 08/27/20 13:10 ONETIME ONE Departure - Departure Time of Disposition: 13:09 Disposition: Home, Self-Care 01 Clinical Impression: UTI, Urinary tract infectious disease - Discharge Information Prescriptions: Amoxicillin/Clavulanate K [Augmentin 500-125 MG] 1 tab PO BID 7 Days #14 tablet Phenazopyridine HCl [Pyridium] 100 mg PO TID 2 Days #6 tablet Instructions: Urinary Tract Infection, Adult, [id number] Referrals: Sathish Quintero MD [Primary Care Provider] - Forms: ED Department Discharge Additional Instructions: The following information is given to patients seen in the emergency department who are being discharged to home. This information is to outline your options for follow-up care. We provide all patients seen in our emergency department with a follow-up referral. The need for follow-up, as well as the timing and circumstances, are variable depending upon the specifics of your emergency department visit. If you don't have a primary care physician on staff, we will provide you with a referral. We always advise you to contact your personal physician following an emergency department visit to inform them of the circumstance of the visit and for follow-up with them and/or the need for any referrals to a consulting specialist. The emergency department will also refer you to a specialist when appropriate. This referral assures that you have the opportunity for follow-up care with a specialist. All of these measure are taken in an effort to provide you with optimal care, which includes your follow-up. Under all circumstances we always encourage you to contact your private physician who remains a resource for coordinating your care. When calling for follow-up care, please make the office aware that this follow-up is from your recent emergency room visit. If for any reason you are refused follow-up, please contact the [facility] Emergency Department at and asked to speak to the emergency department charge nurse. [facility] [address] [place], [place] [id number] [place] [address] Thank you for choosing the [facility] emergency department in [place] for your medical needs today. It was a pleasure caring for you. Today you were seen in the emergency department for urinary symptoms. 1. Today your urine shows a bladder infection. Please take the medication as directed. We have added a urine culture, if the bacteria in your urine shows its resistant we may be calling you to change your prescription. 2. Increase your fluids and you may alternate Tylenol and ibuprofen as needed for pain management. 3. We encourage you to follow up with your primary care provider and/or recommended specialist in the next few days for re-evaluation and further care/management. If your symptoms should worsen, new symptoms develop or any of the signs and symptoms we discussed should arise please return to the emergency room or call 911 (if needed). Sepsis Event Note (ED) - Evaluation Sepsis Screening Result: No Definite Risk - Focused Exam Vital Signs: Vital Signs Temp Pulse Resp BP Pulse Ox 08/27/20 12:14 96.9 F 89 20 148/63 H 94 L - My Orders Last 24 Hours: My Active Orders 08/27/20 12:39 CULTURE URINE [RM] Stat - Assessment/Plan Last 24 Hours: My Active Orders 08/27/20 12:39 CULTURE URINE [] Stat
[2020-08-27 13:20] VITALS: BP 144/63; PULSE 86
== END 2020-08-27 13:23 | disposition home or self-care (01) ==
LOC: MW.ED 11:56
DX: N39.0 Urinary tract infection, site not specified (principal); I10 Essential (primary) hypertension; E78.00 Pure hypercholesterolemia, unspecified; F41.9 Anxiety disorder, unspecified; F32.9 Major depressive disorder, single episode, unspecified; Z88.1 Allergy status to other antibiotic agents; Z88.8 Allergy status to other drugs, medicaments and biological substances; Z79.899 Other long term (current) drug therapy
CPT/HCPCS: 81001; 87086; 87088; 87186; 99284; A9270; 99283

== ENCOUNTER 2020-09-18 13:42 | Emergency (ER) | payer MEDICARE, OTHER ==
--- NOTE | 2020-09-18 13:45 | EDM.PDOC ---
ED HPI GENERAL MEDICAL PROBLEM - General Stated Complaint: PT FROM ONCOLOGY Time Seen by Provider: 09/18/20 13:43 Source of Information: Reports: Patient History Limitations: Reports: No Limitations - History of Present Illness INITIAL COMMENTS - FREE TEXT/NARRATIVE: 65-year-old female past medical history adenocarcinoma of the lung with metastasis presents as a rapid response from oncology clinic. Patient had finished an oncology treatment for chemotherapy, was walking out of the office when she became suddenly short of breath and had a near syncopal episode. A rapid response was called and it was noted that she was hypoxic to the 70s on room air with a heart rate in the 110s. Patient was placed on a nonrebreather with improvement of oxygen saturations to the mid 90s. She notes continued s hortness of breath which is improving. Denies chest pain. Notes that she has been "fighting a chest cold" for the last 10 days. She has been taking Mucinex. She denies fevers. Denies lower extremity swelling or pain. 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 Currently on Gemcitabine, dexamethasone. Upper Back Pain Score (Numeric/FACES): 5 - Related Data Allergies Allergy/AdvReac Type Severity Reaction Status Date / Time clarithromycin [From Biaxin] Allergy Hives Verified 09/18/20 13:58 nivolumab [From Opdivo] Allergy Diarrhea Verified 09/18/20 13:58 Home Meds: Home Meds Calcium Carbonate/Vitamin D3 [Calcium 600 + Vit D Tablet] 1 tab PO DAILY 07/23/16 [History] DULoxetine [Cymbalta] 60 mg PO BID 07/23/16 [History] Hydrochlorothiazide 25 mg PO DAILY 07/23/16 [History] Hydrocodone/Acetaminophen [[place] 10-325] 1 tab PO Q6H PRN 07/23/16 [History] LORazepam 1 mg PO TID PRN 07/23/16 [History] Lansoprazole [Prevacid] 15 mg PO ACBREAKFAST 07/23/16 [History] Lisinopril 10 mg PO DAILY 07/23/16 [History] Magnesium Oxide 800 mg PO TID 07/23/16 [History] Potassium Chloride 20 meq PO BID 07/23/16 [History] Rosuvastatin [Crestor] 40 mg PO DAILY 07/23/16 [History] Amoxicillin/Clavulanate K [Augmentin 500-125 MG] 1 tab PO BID 7 Days #14 tablet 08/27/20 [Rx] Phenazopyridine HCl [Pyridium] 100 mg PO TID 2 Days #6 tablet 08/27/20 [Rx] Past Medical History HEENT History: Reports: Impaired Vision Other HEENT History: wears glasses Cardiovascular History: Reports: High Cholesterol, Hypertension Respiratory History: Reports: Other (See Below) Other Respiratory History: lung cancer Gastrointestinal History: Reports: Chronic Diarrhea 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: Neurological History: Reports: Migraines Psychiatric History: Reports: Anxiety, Depression Oncologic (Cancer) History: Reports: Lung - Infectious Disease History Infectious Disease History: Reports: None - Past Surgical History Respiratory Surgical History: Reports: Lung Biopsies Female Surgical History: Reports: Hysterectomy Social & Family History - Family History Family Medical History: No Pertinent Family History Endocrine/Metabolic: Reports: Diabetes, Type I, Diabetes, type II Oncologic: Reports: Colon - Caffeine Use Caffeine Use: Reports: None - Living Situation & Occupation Occupation: Retired ED ROS GENERAL - Review of Systems Review Of Systems: Comprehensive ROS is negative, except as noted in HPI. ED EXAM, GENERAL - Physical Exam Exam: See Below Exam Limited By: No Limitations General Appearance: Alert, Anxious Throat/Mouth: Normal Voice, No Airway Compromise Head: Atraumatic, Normocephalic Respiratory/Chest: Lungs Clear, Normal Breath Sounds, Respiratory Distress (mild tachypnea) Cardiovascular: Normal Peripheral Pulses, No Edema, Tachycardia GI/Abdominal: Soft, Non-Tender Extremities: Normal Inspection Neurological: Alert Psychiatric: Normal Affect, Normal Mood Skin Exam: Warm, Dry, Intact, Pallor #1 Interpretation EKG Date: 09/18/20 Time: 14:06 Rhythm: Other (sinus tach) Rate (Beats/Min): 105 [place]: LAD-Left [place] Deviation P-Wave: Present QRS: Normal ST-T: Normal QT: Normal [place]/PQ Interval: 210 Comparison: NA - No Prior EKG Course - Vital Signs Last Recorded V/S: Last Vital Signs Temp 96.2 F L 09/18/20 13:58 Pulse 100 09/18/20 17:32 Resp 24 H 09/18/20 13:58 BP 132/63 09/18/20 17:32 Pulse Ox 90 L 09/18/20 17:32 - Orders/Labs/Meds Orders: Active Orders 24 hr Category Date Time Status Cardiac Monitoring [RC] . DIRECTED Care 09/18/20 13:58 Active EKG Documentation Completion [RC] STAT Care 09/18/20 13:58 Active Pulse Oximetry [RC] ASDIRECTED Care 09/18/20 13:58 Active RT Aerosol Therapy [RC] ASDIRECTED Care 09/18/20 14:51 Active Ang Chest [CT] Stat Exams 09/18/20 13:59 Taken CULTURE BLOOD [BC] Stat Lab 09/18/20 13:40 Received CULTURE BLOOD [BC] Stat Lab 09/18/20 14:37 Received UA W/ELBA RFLX IF INDICATED [URIN] Stat Lab 09/18/20 13:59 Ordered Blood Culture x2 Reflex Set [OM.PC] Stat Oth 09/18/20 13:59 Ordered Labs: Laboratory Tests 09/18/20 09/18/20 09/18/20 Range/Units 11:35 11:35 13:35 WBC 13.40 H (4.0-11.0) K/uL RBC 4.19 L (4.30-5.90) M/uL Hgb 9.7 L (12.0-16.0) g/dL Hct 35.3 L (36.0-46.0) % MCV 84.2 (80.0-98.0) fL MCH 23.2 L (27.0-32.0) pg MCHC 27.5 L (31.0-37.0) g/dL RDW Std Deviation 67.6 H (28.0-62.0) fl RDW Coeff of Ge 22 H (11.0-15.0) % Plt Count 233 (150-400) K/uL MPV 11.10 (7.40-12.00) fL Add Manual Diff YES Neutrophils % (Manual) 74 (48.0-80.0) % Lymphocytes % (Manual) 16 (16.0-40.0) % Monocytes % (Manual) 7 (0.0-15.0) % Eosinophils % (Manual) 2 (0.0-7.0) % Basophils % (Manual) 1 (0.0-1.5) % Nucleated RBC % 0.9 /100WBC Absolute Seg Neuts 9.9 H (1.4-5.7) Lymphocytes # (Manual) 2.1 (0.6-2.4) Monocytes # (Manual) 0.9 H (0.0-0.8) Eosinophils # (Manual) 0.3 (0.0-0.7) Basophils # (Manual) 0.1 (0.0-0.1) Nucleated RBCs # 0 K/uL Plt Morphology Comment Poikilocytosis 2+ MODERATE Anisocytosis 1+ SLIGHT Tear Drop Cells FEW Stomatocytes FEW Helmet Cells OCCASIONAL Elliptocytes FEW Acanthocytes (Spur) FEW INR APTT (18.6-31.3) SEC D-Dimer, Quantitative (0.0-0.50) mg/L FEU Lactate (0.20-2.00) mmol/L Sodium 142 (136-145) mmol/L Potassium 4.8 (3.5-5.1) mmol/L Chloride 110 H (98-107) mmol/L Carbon Dioxide 17.4 L (21.0-32.0) mmol/L BUN 16 (7.0-18.0) mg/dL Creatinine 1.1 H (0.6-1.0) mg/dL Est Cr Clr Drug Dosing 43.44 mL/min Estimated GFR (MDRD) 49.7 ml/min Glucose 142 H (74-106) mg/dL Calcium 7.7 L (8.5-10.1) mg/dL Magnesium 2.6 H (1.8-2.4) mg/dL Total Bilirubin 0.4 (0.2-1.0) mg/dL AST 24 (15-37) IU/L ALT 15 (14-63) IU/L Alkaline Phosphatase 127 H (46-116) U/L Troponin I < 0.050 (0.000-0.056) ng/mL B-Natriuretic Peptide (<100) PG/ML Total Protein 6.0 L (6.4-8.2) g/dL Albumin 3.0 L (3.4-5.0) g/dL Globulin 3.0 (2.6-4.0) g/dL Albumin/Globulin Ratio 1.0 (0.9-1.6) SARS-CoV-2 RNA (EL) (NEGATIVE) 09/18/20 09/18/20 09/18/20 Range/Units 13:35 14:37 15:00 WBC (4.0-11.0) K/uL RBC (4.30-5.90) M/uL Hgb (12.0-16.0) g/dL Hct (36.0-46.0) % MCV (80.0-98.0) fL MCH (27.0-32.0) pg MCHC (31.0-37.0) g/dL RDW Std Deviation (28.0-62.0) fl RDW Coeff of Ge (11.0-15.0) % Plt Count (150-400) K/uL MPV (7.40-12.00) fL Add Manual Diff Neutrophils % (Manual) (48.0-80.0) % Lymphocytes % (Manual) (16.0-40.0) % Monocytes % (Manual) (0.0-15.0) % Eosinophils % (Manual) (0.0-7.0) % Basophils % (Manual) (0.0-1.5) % Nucleated RBC % /100WBC Absolute Seg Neuts (1.4-5.7) Lymphocytes # (Manual) (0.6-2.4) Monocytes # (Manual) (0.0-0.8) Eosinophils # (Manual) (0.0-0.7) Basophils # (Manual) (0.0-0.1) Nucleated RBCs # K/uL Plt Morphology Comment Poikilocytosis Anisocytosis Tear Drop Cells Stomatocytes Helmet Cells Elliptocytes Acanthocytes (Spur) INR 1.03 APTT 24.8 (18.6-31.3) SEC D-Dimer, Quantitative 1.55 H (0.0-0.50) mg/L FEU Lactate 2.2 H* (0.20-2.00) mmol/L Sodium (136-145) mmol/L Potassium (3.5-5.1) mmol/L Chloride (98-107) mmol/L Carbon Dioxide (21.0-32.0) mmol/L BUN (7.0-18.0) mg/dL Creatinine (0.6-1.0) mg/dL Est Cr Clr Drug Dosing mL/min Estimated GFR (MDRD) ml/min Glucose (74-106) mg/dL Calcium (8.5-10.1) mg/dL Magnesium (1.8-2.4) mg/dL Total Bilirubin (0.2-1.0) mg/dL AST (15-37) IU/L ALT (14-63) IU/L Alkaline Phosphatase (46-116) U/L Troponin I (0.000-0.056) ng/mL B-Natriuretic Peptide 293 H (<100) PG/ML Total Protein (6.4-8.2) g/dL Albumin (3.4-5.0) g/dL Globulin (2.6-4.0) g/dL Albumin/Globulin Ratio (0.9-1.6) SARS-CoV-2 RNA (EL) (NEGATIVE) 09/18/20 Range/Units 16:25 WBC (4.0-11.0) K/uL RBC (4.30-5.90) M/uL Hgb (12.0-16.0) g/dL Hct (36.0-46.0) % MCV (80.0-98.0) fL MCH (27.0-32.0) pg MCHC (31.0-37.0) g/dL RDW Std Deviation (28.0-62.0) fl RDW Coeff of Ge (11.0-15.0) % Plt Count (150-400) K/uL MPV (7.40-12.00) fL Add Manual Diff Neutrophils % (Manual) (48.0-80.0) % Lymphocytes % (Manual) (16.0-40.0) % Monocytes % (Manual) (0.0-15.0) % Eosinophils % (Manual) (0.0-7.0) % Basophils % (Manual) (0.0-1.5) % Nucleated RBC % /100WBC Absolute Seg Neuts (1.4-5.7) Lymphocytes # (Manual) (0.6-2.4) Monocytes # (Manual) (0.0-0.8) Eosinophils # (Manual) (0.0-0.7) Basophils # (Manual) (0.0-0.1) Nucleated RBCs # K/uL Plt Morphology Comment Poikilocytosis Anisocytosis Tear Drop Cells Stomatocytes Helmet Cells Elliptocytes Acanthocytes (Spur) INR APTT (18.6-31.3) SEC D-Dimer, Quantitative (0.0-0.50) mg/L FEU Lactate (0.20-2.00) mmol/L Sodium (136-145) mmol/L Potassium (3.5-5.1) mmol/L Chloride (98-107) mmol/L Carbon Dioxide (21.0-32.0) mmol/L BUN (7.0-18.0) mg/dL Creatinine (0.6-1.0) mg/dL Est Cr Clr Drug Dosing mL/min Estimated GFR (MDRD) ml/min Glucose (74-106) mg/dL Calcium (8.5-10.1) mg/dL Magnesium (1.8-2.4) mg/dL Total Bilirubin (0.2-1.0) mg/dL AST (15-37) IU/L ALT (14-63) IU/L Alkaline Phosphatase (46-116) U/L Troponin I (0.000-0.056) ng/mL B-Natriuretic Peptide (<100) PG/ML Total Protein (6.4-8.2) g/dL Albumin (3.4-5.0) g/dL Globulin (2.6-4.0) g/dL Albumin/Globulin Ratio (0.9-1.6) SARS-CoV-2 RNA (EL) NEGATIVE (NEGATIVE) Meds: Medications Discontinued Medications Generic Name Dose Route Start Last Admin Trade Name Scottq PRN Reason Stop Dose Admin Albuterol/Ipratropium 3 ml 09/18/20 14:51 09/18/20 15:02 Duoneb 3.0-0.5 Mg/3 Ml NEB 09/18/20 14:52 3 ml ONETIME ONE Administration Sodium Chloride 1,000 mls @ 999 mls/hr 09/18/20 13:58 09/18/20 14:05 Normal Saline IV 09/18/20 14:58 999 mls/hr .Bolus ONE Administration - Re-Assessments/Exams Free Text/Narrative Re-Assessment/Exam: 09/18/20 14:04 We will get labs, EKG, chest x-ray, CTA of the chest to rule out pulmonary embolism. 1 L fluid bolus is running. We will follow up results and disposition accordingly. 09/18/20 17:32 COVID-19 testing is negative. We will follow up CT and disposition accordingly. Patient states that she feels much better after roughly 15 minutes being in the ER with IV fluids and oxygen. She does wear oxygen at home, and did not have oxygen on at time of her incident. Patient with mildly elevated white count but in setting of Decadron use. Lactate was 2.2. This is before the 1 L IV fluid bolus. Anticipate discharging patient home with short course of azithromycin as she has been having a productive cough and "chest cold". Assuming no pulmonary embolism will be okay to go home and follow-up with her PMD. 09/18/20 18:04 Patient will leave AGAINST MEDICAL ADVICE. She does not want to wait for the results of her CT scan. She is willing to get the CT scan, but states that she is leaving as soon as the CT scan is done. Departure - Departure Time of Disposition: 18:04 Disposition: Against Medical Advice 07 Clinical Impression: Near syncope Chest pain Qualifiers: Chest pain type: other chest pain Qualified Code(s): R07.89 - Other chest pain; R07.8 - Other chest pain - Discharge Information Instructions: Syncope Referrals: Sathish Quintero MD [Primary Care Provider] - Additional Instructions: You have chosen to leave AGAINST MEDICAL ADVICE prior to your work-up being complete. This is your choice, but please know that we are always here for you and always willing to see you in our emergency department. I apologize that the wait time was so long to get your results. This is unacceptable on our part, and we will strive to do better for you in the future. Regardless of your decision today, please note that this in no way affects your ability to seek care from us in the future. We enjoy helping you, and if anything changes we w ould love to see you back so that we can get you the help that you need. The following information is given to patients seen in the emergency department who are being discharged to home. This information is to outline your options for follow-up care. We provide all patients seen in our emergency department with a follow-up referral. The need for follow-up, as well as the timing and circumstances, are variable depending upon the specifics of your emergency department visit. If you don't have a primary care physician on staff, we will provide you with a referral. We always advise you to contact your personal physician following an emergency department visit to inform them of the circumstance of the visit and for follow-up with them and/or the need for any referrals to a consulting specialist. The emergency department will also refer you to a specialist when appropriate. This referral assures that you have the opportunity for follow-up care with a specialist. All of these measure are taken in an effort to provide you with optimal care, which includes your follow-up. Under all circumstances we always encourage you to contact your private physician who remains a resource for coordinating your care. When calling for follow-up care, please make the office aware that this follow-up is from your recent emergency room visit. If for any reason you are refused follow-up, please contact the [facility] Emergency Department at and asked to speak to the emergency department charge nurse. Please follow up with your primary care physician. If you do not have a primary care physician, see below: [facility] [address] [place] [id number] [facility] [address] [place] [id number] Sepsis Event Note (ED) - Focused Exam Vital Signs: Vital Signs Temp Pulse Resp BP Pulse Ox 09/18/20 17:32 100 132/63 90 L 09/18/20 17:02 125/64 92 L 09/18/20 16:02 115/63 100 09/18/20 13:58 96.2 F L 112 H 24 H 156/81 H 100 - My Orders Last 24 Hours: My Active Orders 09/18/20 13:40 CULTURE BLOOD [BC] Stat 09/18/20 13:58 Cardiac Monitoring [RC] . DIRECTED EKG Documentation Completion [RC] STAT Pulse Oximetry [RC] ASDIRECTED 09/18/20 13:59 Ang Chest [CT] Stat UA W/ELBA RFLX IF INDICATED [URIN] Stat Blood Culture x2 Reflex Set [OM.PC] Stat 09/18/20 14:37 CULTURE BLOOD [BC] Stat 09/18/20 14:51 RT Aerosol Therapy [RC] ASDIRECTED - Assessment/Plan Last 24 Hours: My Active Orders 09/18/20 13:40 CULTURE BLOOD [BC] Stat 09/18/20 13:58 Cardiac Monitoring [RC] . DIRECTED EKG Documentation Completion [RC] STAT Pulse Oximetry [RC] ASDIRECTED 09/18/20 13:59 Ang Chest [CT] Stat UA W/ELBA RFLX IF INDICATED [URIN] Stat Blood Culture x2 Reflex Set [OM.PC] Stat 09/18/20 14:37 CULTURE BLOOD [BC] Stat 09/18/20 14:51 RT Aerosol Therapy [RC] ASDIRECTED
[2020-09-18] MEDS ORDERED: Sodium Chloride 0.9% 1,000 ML IV ONE (13:58)
[2020-09-18 14:29] LABS: BLOOD UREA NITROGEN,BUN 16 mg/dL (7.0-18.0); CARBON DIOXIDE,CO2 17.4 mmol/L (21.0-32.0); CHLORIDE,CL 110 mmol/L (98-107); GLUCOSE RANDOM 142 mg/dL (74-106); POTASSIUM,K 4.8 mmol/L (3.5-5.1); SODIUM,NA 142 mmol/L (136-145)
[2020-09-18] MEDS ORDERED: Albuterol/Ipratropium 3.0-0.5 MG/3 ML Neb Soln NEB ONE (14:51)
--- NOTE | 2020-09-18 14:57 | CR ---
INDICATION: Lung cancer. Syncope. Hypoxia. Tachycardia. TECHNIQUE: Portable AP images chest. COMPARISON: 03/05/2017. FINDINGS: Diffuse infiltrates, presumably due to pulmonary interstitial and alveolar edema. Mid right lung atelectasis/scarring, as before. Heart size stable. No significant bony abnormality. Port-A-Cath, as before. IMPRESSION: Diffuse infiltrates, presumably pulmonary interstitial and alveolar edema from CHF. Dictated by Lester Bahena MD @ Sep 18 2020 2:51PM Signed by Dr. Lester Bahena @ Sep 18 2020 2:56PM
[2020-09-18 19:05] VITALS: BP 133/70; PULSE 108
== END 2020-09-18 18:45 | disposition left against medical advice (07) ==
LOC: MW.ED 13:42
DX: R07.89 Other chest pain (principal); R55 Syncope and collapse; E78.00 Pure hypercholesterolemia, unspecified; I10 Essential (primary) hypertension; F32.9 Major depressive disorder, single episode, unspecified; Z79.899 Other long term (current) drug therapy; Z88.1 Allergy status to other antibiotic agents; Z88.8 Allergy status to other drugs, medicaments and biological substances; Z20.828 Contact with and (suspected) exposure to other viral communicable diseases
CPT/HCPCS: 36415; 71045; 80053; 83605; 83735; 83880; 84484; 85025; 85379; 85610; 85730; 87040; 93005; 94640; 99284; J1642; J7030; U0002; 93010; J7620-GY

== ENCOUNTER 2020-09-19 11:25 | Emergency (ER) | payer MEDICARE, OTHER ==
[2020-09-19] MEDS ORDERED: Sodium Chloride 0.9% 10 ML Syringe FLUSH PRN (11:30)
[2020-09-19] MEDS ORDERED: Sodium Chloride 0.9% 2.5 ML Syringe FLUSH PRN (11:30)
--- NOTE | 2020-09-19 11:46 | EDM.PDOC ---
ED HPI GENERAL MEDICAL PROBLEM - General Stated Complaint: POSSIBLE BLOWN OUT VEINS Time Seen by Provider: 09/19/20 11:28 Source of Information: Reports: Patient History Limitations: Reports: No Limitations - History of Present Illness INITIAL COMMENTS - FREE TEXT/NARRATIVE: HISTORY AND PHYSICAL: History of present illness: Patient is a 65-year-old female who presents to the emergency room requesting a CT of the chest to rule out a pulmonary embolism. Patient was in oncology yesterday receiving treatment for chemotherapy. As she was walking out of the office she became short of breath and had a near syncopal event. A rapid response was called and it was noted that she was hypoxic in the 70s on room air with a heart rate of 1 teens. She was placed on a nonrebreather and transferred to the emergency department. Patient received basic lab work although they had a difficult time establishing an IV for the CT of the chest. She did receive all her labs and was doing discharge after receiving the CTA. She ended up leaving AGAINST MEDICAL ADVICE as she did not want any more IV attempts and felt well enough to go home. She called [facility] to set up a follow-up appointment to see if she could have this scan done, her PCP (Dr Cha) is out but Dr. Cash recommended she come to the emergency room to have the CT completed. She states she has been fighting a chest cold for the past 10 days. Has been taking Mucinex. Patient denies any fever, chills, headache, change in vision, syncope or near syncope. Denies any chest pain, back pain, shortness of breath or cough - " have not had any problems since leaving the emergency room". Denies any abdominal pain, nausea, vomiting, diarrhea, constipation or dysuria. Has not noted any blood in urine or stool. Patient has been eating and drinking appropriately. 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 Currently on Gemcitabine and dexamethasone. Also has a past medical history of evaded cholesterol, hypertension, migraines, anxiety/depression. Review of systems: As per history of present illness and below otherwise all systems reviewed and negative. Past medical history: As per history of present illness and as reviewed below otherwise noncontributory. Surgical history: As per history of present illness and as reviewed below otherwise noncontributory. Social history: See social history for further information Family history: As per history of present illness and as reviewed below otherwise noncontributory. Physical exam: General: Well developed but chronically ill appearing 65 year old female. Alert and orientated x 3. Nontoxic in appearance and in no acute distress. Vital signs are stable and have been reviewed by me. Nursing notes were reviewed. HEENT: Atraumatic, normocephalic, pupils equal and reactive bilaterally, negative for conjunctival pallor or scleral icterus, mucous membranes moist, TMs normal bilaterally, throat clear, neck supple, nontender, trachea midline. No drooling or trismus noted. No meningeal signs. No hot potato voice noted. Lungs: Slightly diminished to auscultation, breath sounds equal bilaterally, chest nontender. Normal work of breathing, no accessory muscles used. Heart: S1S2, regular rate and rhythm without overt murmur Abdomen: Soft, nondistended, nontender. Negative for masses or hepatosplenomegaly. Negative for costovertebral tenderness. Pelvis: Stable nontender. Skin: Pale, intact, warm, dry. No lesions or rashes noted. Hematologic: No petechiae or purpra. Mucosa appropriate color and normal nail bed color and refill. Extremities: Atraumatic, moves all extremities per self without difficulty or deficits, negative for cords or calf pain. Neurovascular unremarkable. Neuro: Awake, alert, oriented. Cranial nerves II through XII unremarkable. Cerebellum unremarkable. Motor and sensory unremarkable throughout. Exam nonfocal. Psychiatric: Mood and affect are appropriate. Normal thought process. Answering questions appropriately. Notes: 09/18/2020: WBC 13.4, hemoglobin 9.7, hematocrit 35.3, D-dimer 1.55, lactate 2.2, negative COVID-19. Staff was unable to draw blood from her IV site and patient is declining wanting to be poked again at this time. States she just had labs done yesterday and is here for the CT scan only. We will try again when she returns from the CT scan. Her vital signs are stable. CT shows extensive interstitial and airspace opacities seen throughout bilateral hemithoraces which may represent developing multifocal infiltrates versus pulmonary edema. Confluent soft tissue adjacent to the right hilum is appreciated with right greater than left bibasilar pleural effusions with adjacent comprehensive atelectasis versus infiltrates. There is an enlarging mass within the posterior right upper lobe from comparison which represents worsening malignancy likely. Otherwise no evidence of pulmonary embolism. I have talked with the patient about today's findings, in addition to providing specific details for plan of care. Reassessment at the time of disposition demonstrates that the patient is in no acute distress. She continues to decline wanting any labs done as she does not want to wait for results or be "poked again". She states she does have a PET scan ordered for the end of the month and does plan on seeing her primary care provider on Tuesday. Due to patient's comorbidities will treat with Augmentin. the patient is stable for discharge, counseling was provided and we discussed in great detail signs and symptoms that would prompt them to return to the Emergency Department. Medication, follow up and supportive care measures were reviewed and discussed. Voices understanding and is agreeable to plan of care. Denies any further questions or concerns at th is time. Diagnostics: CBC, CMP, Lactate, CT Chest Therapeutics: None Prescription: Augment and Doxy Impression: Infiltrate of lung History of lung cancer Plan: 1. Today your CT of your chest shows no evidence of pulmonary embolism (blood clot). There is some suggestion of infiltrates (early pneumonia) and therefore we will give you a Z-Marc and recommended you have close follow-up with your primary care provider. CT also shows an enlarging mass within the right upper lobe which should be followed up with by your oncologist as we discussed. 2. Take your medications as prescribed. 3. We encourage you to follow up with your primary care provider and/or recommended specialist in the next few days for re-evaluation and further care/management. If your symptoms should worsen, new symptoms develop or any of the signs and symptoms we discussed should arise please return to the emergency room or call 911 (if needed). Definitive disposition and diagnosis as appropriate pending reevaluation and review of above. - Related Data Allergies Allergy/AdvReac Type Severity Reaction Status Date / Time clarithromycin [From Biaxin] Allergy Hives Verified 09/19/20 12:05 nivolumab [From Opdivo] Allergy Diarrhea Verified 09/19/20 12:05 Home Meds: Home Meds Calcium Carbonate/Vitamin D3 [Calcium 600 + Vit D Tablet] 1 tab PO DAILY 07/23/16 [History] DULoxetine [Cymbalta] 60 mg PO BID 07/23/16 [History] Hydrochlorothiazide 25 mg PO DAILY 07/23/16 [History] Hydrocodone/Acetaminophen [[place] 10-325] 1 tab PO Q6H PRN 07/23/16 [History] LORazepam 1 mg PO TID PRN 07/23/16 [History] Lansoprazole [Prevacid] 15 mg PO ACBREAKFAST 07/23/16 [History] Lisinopril 10 mg PO DAILY 07/23/16 [History] Magnesium Oxide 800 mg PO TID 07/23/16 [History] Potassium Chloride 20 meq PO BID 07/23/16 [History] Rosuvastatin [Crestor] 40 mg PO DAILY 07/23/16 [History] Amoxicillin/Clavulanate K [Augmentin 500-125 MG] 1 tab PO BID 7 Days #14 tablet 08/27/20 [Rx] Phenazopyridine HCl [Pyridium] 100 mg PO TID 2 Days #6 tablet 08/27/20 [Rx] Amoxicillin/Clavulanate K [Augmentin 875-125 MG] 1 tab PO BID 7 Days #14 tablet 09/19/20 [Rx] Past Medical History HEENT History: Reports: Impaired Vision Other HEENT History: wears glasses Cardiovascular History: Reports: High Cholesterol, Hypertension Respiratory History: Reports: Other (See Below) Other Respiratory History: lung cancer Gastrointestinal History: Reports: Chronic Diarrhea 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: Neurological History: Reports: Migraines Psychiatric History: Reports: Anxiety, Depression Oncologic (Cancer) History: Reports: Lung - Infectious Disease History Infectious Disease History: Reports: None - Past Surgical History Respiratory Surgical History: Reports: Lung Biopsies Female Surgical History: Reports: Hysterectomy Social & Family History - Family History Family Medical History: No Pertinent Family History Endocrine/Metabolic: Reports: Diabetes, Type I, Diabetes, type II Oncologic: Reports: Colon - Caffeine Use Caffeine Use: Reports: None - Living Situation & Occupation Occupation: Retired ED ROS GENERAL - Review of Systems Review Of Systems: Comprehensive ROS is negative, except as noted in HPI. ED EXAM, GENERAL - Physical Exam Exam: See Below (See dictation) Course - Vital Signs Last Recorded V/S: Last Vital Signs Temp 96.1 F L 09/19/20 11:46 Pulse 93 09/19/20 11:46 Resp 18 09/19/20 11:46 BP 132/64 09/19/20 11:46 Pulse Ox - Orders/Labs/Meds Orders: Active Orders 24 hr Category Date Time Status CBC WITH AUTO DIFF [HEME] Stat Lab 09/19/20 11:51 Ordered CMP [COMPREHENSIVE METABOLIC PN,CMP] [CHEM] Stat Lab 09/19/20 11:51 Ordered LACTATE WITH REFLEX [BG] Stat Lab 09/19/20 11:52 Ordered Sodium Chloride 0.9% [Saline Flush] Med 09/19/20 11:30 Active 10 ml FLUSH ASDIRECTED PRN Sodium Chloride 0.9% [Saline Flush] Med 09/19/20 11:30 Active 2.5 ml FLUSH ASDIRECTED PRN Saline Lock Insert [OM.PC] Stat Oth 09/19/20 11:30 Ordered Medication Orders Sodium Chloride (Saline Flush) 10 ml FLUSH ASDIRECTED PRN PRN Reason: Keep Vein Open Sodium Chloride (Saline Flush) 2.5 ml FLUSH ASDIRECTED PRN PRN Reason: Keep Vein Open Meds: Medications Generic Name Dose Route Start Last Admin Trade Name Freq PRN Reason Stop Dose Admin Sodium Chloride 10 ml 09/19/20 11:30 Saline Flush FLUSH ASDIRECTED PRN Keep Vein Open Sodium Chloride 2.5 ml 09/19/20 11:30 Saline Flush FLUSH ASDIRECTED PRN Keep Vein Open Discontinued Medications Generic Name Dose Route Start Last Admin Trade Name Freq PRN Reason Stop Dose Admin Iopamidol 75 ml 09/19/20 12:08 09/19/20 12:12 Isovue Multipack-370 (76%) IVPUSH 09/19/20 12:09 75 ml ONETIME STA Administration Departure - Departure Time of Disposition: 13:03 Disposition: Home, Self-Care 01 Clinical Impression: Infiltrate of lung present on computed tomography Stage IV adenocarcinoma of lung Qualifiers: Laterality: right Qualified Code(s): C34.91 - Malignant neoplasm of unspecified part of right bronchus or lung - Discharge Information Prescriptions: Amoxicillin/Clavulanate K [Augmentin 875-125 MG] 1 tab PO BID 7 Days #14 tablet Instructions: Community-Acquired Pneumonia, Adult, [id number] Referrals: Sathish Quintero MD [Primary Care Provider] - Additional Instructions: The following information is given to patients seen in the emergency department who are being discharged to home. This information is to outline your options for follow-up care. We provide all patients seen in our emergency department with a follow-up referral. The need for follow-up, as well as the timing and circumstances, are variable depending upon the specifics of your emergency department visit. If you don't have a primary care physician on staff, we will provide you with a referral. We always advise you to contact your personal physician following an emergency department visit to inform them of the circumstance of the visit and for follow-up with them and/or the need for any referrals to a consulting specialist. The emergency department will also refer you to a specialist when appropriate. This referral assures that you have the opportunity for follow-up care with a specialist. All of these measure are taken in an effort to provide you with optimal care, which includes your follow-up. Under all circumstances we always encourage you to contact your private physician who remains a resource for coordinating your care. When calling for follow-up care, please make the office aware that this follow-up is from your recent emergency room visit. If for any reason you are refused follow-up, please contact the [facility] Emergency Department at and asked to speak to the emergency department charge nurse. [facility] [address] [place], [place] [id number] [address] [address] Thank you for choosing the [facility] emergency department in [place] for your medical needs today. It was a pleasure caring for you. Today you were seen in the emergency department for CT imaging. 1. Today your CT of your chest shows no evidence of pulmonary embolism (blood clot). There is some suggestion of infiltrates (early pneumonia) and therefore we will give you a Z-Marc and recommended you have close follow-up with your primary care provider. CT also shows an enlarging mass within the right upper lobe which should be followed up with by your oncologist as we discussed. 2. Take your medications as prescribed. 3. We encourage you to follow up with your primary care provider and/or recommended specialist in the next few days for re-evaluation and further care/management. If your symptoms should worsen, new symptoms develop or any of the signs and symptoms we discussed should arise please return to the emergency room or call 911 (if needed). Sepsis Event Note (ED) - Focused Exam Vital Signs: Vital Signs Temp Pulse Resp BP 09/19/20 11:46 96.1 F L 93 18 132/64 - My Orders Last 24 Hours: My Active Orders 09/19/20 11:30 Sodium Chloride 0.9% [Saline Flush] 10 ml FLUSH ASDIRECTED PRN Sodium Chloride 0.9% [Saline Flush] 2.5 ml FLUSH ASDIRECTED PRN Saline Lock Insert [OM.PC] Stat 09/19/20 11:51 CBC WITH AUTO DIFF [HEME] Stat CMP [COMPREHENSIVE METABOLIC PN,CMP] [CHEM] Stat 09/19/20 11:52 LACTATE WITH REFLEX [BG] Stat - Assessment/Plan Last 24 Hours: My Active Orders 09/19/20 11:30 Sodium Chloride 0.9% [Saline Flush] 10 ml FLUSH ASDIRECTED PRN Sodium Chloride 0.9% [Saline Flush] 2.5 ml FLUSH ASDIRECTED PRN Saline Lock Insert [OM.PC] Stat 09/19/20 11:51 CBC WITH AUTO DIFF [HEME] Stat CMP [COMPREHENSIVE METABOLIC PN,CMP] [CHEM] Stat 09/19/20 11:52 LACTATE WITH REFLEX [BG] Stat
[2020-09-19] MEDS ORDERED: Iopamidol 755 MG/ML 500 ML Multipack Bottle IVPUSH STA (12:08)
--- NOTE | 2020-09-19 12:55 | CT ---
Indication: History of dyspnea and lung cancer Technique: Volumetric multidetector CT images of the chest were obtained after the administration of IV contrast. 75 cc Isovue 370 Comparison: CT angiography chest June 26, 2019 Findings: The thoracic inlet and thyroid gland are unremarkable. The thoracic aorta is nonaneurysmal. There is no central filling defect to suggest pulmonary embolism. There are again seen mediastinal and hilar lymph nodes similar to previous exam. Confluent right hilar soft tissue is noted. There is moderate traction bronchiectasis and mucoid impaction predominantly of the lower lobes. There is extensive chronic interstitial change with diffuse ground-glass perihilar opacities. There are right greater than left basilar effusions with adjacent compressive atelectasis versus infiltrates. There is no pneumothorax. There is increased size of a pulmonary mass within the posterior right upper lobe measuring 1.7 centimeters in greatest dimension, previously measuring 7.7 millimeters. The partially visualized upper abdominal viscera are within normal limits. The thoracic vertebral body heights are grossly maintained with [id number] degenerative disc disease. There is no spondylolisthesis or displaced fracture. Impression: Demonstration of extensive interstitial and airspace opacities seen throughout the bilateral hemithoraces which may represent developing multifocal infiltrates versus pulmonary edema. Confluent soft tissue adjacent to the right hilum is appreciated with right greater than left basilar pleural effusions with adjacent compressive atelectasis versus infiltrates. There is an enlarging mass within the posterior right upper lobe from comparison exam likely representing worsening malignancy. Otherwise, no definite evidence of pulmonary embolus. Please note that all CT scans at this facility use dose modulation, iterative reconstruction, and/or weight-based dosing when appropriate to reduce radiation dose to as low as reasonably achievable. Dictated by Jeff Tobin MD @ Sep 19 2020 12:41PM Signed by Dr. Jeff Tobin @ Sep 19 2020 12:53PM
[2020-09-19 13:49] VITALS: BP 128/61; PULSE 99
== END 2020-09-19 13:54 | disposition home or self-care (01) ==
LOC: MW.ED 11:25
DX: R91.8 Other nonspecific abnormal finding of lung field (principal); E78.00 Pure hypercholesterolemia, unspecified; I10 Essential (primary) hypertension; F41.9 Anxiety disorder, unspecified; F32.9 Major depressive disorder, single episode, unspecified; C34.91 Malignant neoplasm of unspecified part of right bronchus or lung; Z85.118 Personal history of other malignant neoplasm of bronchus and lung; Z88.1 Allergy status to other antibiotic agents; Z88.8 Allergy status to other drugs, medicaments and biological substances; Z79.899 Other long term (current) drug therapy
CPT/HCPCS: 71275; 99282; Q9967; 99283

== ENCOUNTER 2020-09-24 21:41 | Emergency (ER) | payer MEDICARE, OTHER ==
[~2020-09-24 21:41] MED LIST changes: +Etomidate 2 MG/ML 20 ML SDV IVPUSH ONE; -Iopamidol 755 MG/ML 500 ML Multipack Bottle IVPUSH STA; +Rocuronium 100 MG/10 ML MDV ONE
[2020-09-24] MEDS ORDERED: methylPREDNISolone Sodium Succinate 125 MG/2 ML SDV IVPUSH ONE (21:43)
[2020-09-24] MEDS ORDERED: Albuterol/Ipratropium 3.0-0.5 MG/3 ML Neb Soln NEB ONE (21:43)
[2020-09-24] MEDS ORDERED: Sodium Chloride 0.9% 10 ML Syringe FLUSH PRN (21:47)
[2020-09-24] MEDS ORDERED: Sodium Chloride 0.9% 2.5 ML Syringe FLUSH PRN (21:47)
[2020-09-24] MEDS ORDERED: propofoL 50 ML ONE (21:54)
--- NOTE | 2020-09-24 22:07 | EDM.PDOC ---
ED HPI GENERAL MEDICAL PROBLEM - General Chief Complaint: Respiratory Problem Stated Complaint: SOB Time Seen by Provider: 09/24/20 21:43 - History of Present Illness INITIAL COMMENTS - FREE TEXT/NARRATIVE: 65yoF with stage 4 lung cancer getting chemotherapy who presents with respiratory failure. Hx provided by patient's . The patient was initially seen in this ED on September 17. She developed shortness of breath after chemotherapy treatment. The plan was to do a CT pulmonary angiogram. However the patient ended up going home AMA and returning the next day. That CT scan demonstrated a multifocal pneumonia with some signs of pulmonary edema and pleural effusions as well as an enlarging cancerous mass. She was seen by her primary care doctor and started on Augmentin. Patient has been on 3 L nasal cannula at home. This evening she started to have more trouble breathing and rapidly declined laminin was called and she was brought in. On EMS arrival she had agonal respirations and was unresponsive. EMS reported that the told him that she was DNR and goals of care were relatively unclear. - Related Data Allergies Allergy/AdvReac Type Severity Reaction Status Date / Time clarithromycin [From Biaxin] Allergy Hives Verified 09/24/20 21:51 nivolumab [From Opdivo] Allergy Diarrhea Verified 09/24/20 21:51 Home Meds: Home Meds Calcium Carbonate/Vitamin D3 [Calcium 600 + Vit D Tablet] 1 tab PO DAILY 07/23/16 [History] DULoxetine [Cymbalta] 60 mg PO BID 07/23/16 [History] Hydrochlorothiazide 25 mg PO DAILY 07/23/16 [History] Hydrocodone/Acetaminophen [[place] 10-325] 1 tab PO Q6H PRN 07/23/16 [History] LORazepam 1 mg PO TID PRN 07/23/16 [History] Lansoprazole [Prevacid] 15 mg PO ACBREAKFAST 07/23/16 [History] Lisinopril 10 mg PO DAILY 07/23/16 [History] Magnesium Oxide 800 mg PO TID 07/23/16 [History] Potassium Chloride 20 meq PO BID 07/23/16 [History] Rosuvastatin [Crestor] 40 mg PO DAILY 07/23/16 [History] Amoxicillin/Clavulanate K [Augmentin 500-125 MG] 1 tab PO BID 7 Days #14 tablet 08/27/20 [Rx] Phenazopyridine HCl [Pyridium] 100 mg PO TID 2 Days #6 tablet 08/27/20 [Rx] Amoxicillin/Clavulanate K [Augmentin 875-125 MG] 1 tab PO BID 7 Days #14 tablet 09/19/20 [Rx] Past Medical History - Past Health History Medical/Surgical History: Denies Medical/Surgical History HEENT History: Reports: Impaired Vision Other HEENT History: wears glasses Cardiovascular History: Reports: High Cholesterol, Hypertension Respiratory History: Reports: Other (See Below) Other Respiratory History: lung cancer Gastrointestinal History: Reports: Chronic Diarrhea [employer] INS[employer]OR History: Reports: Neurological History: Reports: Migraines Psychiatric History: Reports: Anxiety, Depression Oncologic (Cancer) History: Reports: Lung - Infectious Disease History Infectious Disease History: Reports: None - Past Surgical History Respiratory Surgical History: Reports: Lung Biopsies GI Surgical History: Reports: Appendectomy, Cholecystectomy Female Surgical History: Reports: Hysterectomy Social & Family History - Family History Family Medical History: No Pertinent Family History Endocrine/Metabolic: Reports: Diabetes, Type I, Diabetes, type II Oncologic: Reports: Colon - Tobacco Use Tobacco Use Status *Q: Never Tobacco User - Caffeine Use Caffeine Use: Reports: None - Recreational Drug Use Recreational Drug Use: No - Living Situation & Occupation Occupation: Retired ED ROS GENERAL - Review of Systems Review Of Systems: Unable To Obtain Reason Not Obtained: Critical illness ED EXAM, GENERAL - Physical Exam Exam: See Below Free Text/Narrative:: General Appearance: Respiratory distress Skin: Pale HEENT: Normocephalic/atraumatic, sclera anicteric, mucous membranes dry Neck: Normal range of motion Chest and Lungs: Diffuse expiratory wheezing with prolonged expiratory phase, crackles at the bilateral bases Cardiovascular: Mildly tachycardic rate regular rhythm, no murmur Abdomen: Soft, non-tender Back: Normal Musculoskeletal: No edema or tenderness Neurologic: Initially unresponsive Psychiatric: Appropriate, cooperative ED RESPIRATORY PROCEDURES - Endotracheal Intubation Time of Intubation: 22:01 ET Intubation Indication: Respiratory Failure, Airway Protection Preparation: Suction, Balloon Tested, BVM Set Up Pre-Oxygenation: Other (BiPAP 100% at time of intubation) Anesthesia Meds: Etomidate, Rocuronium Placement: Orotracheal Cords Visualized: Grade 1 ETT Size In mm: 7.5 Number of Attempts: 1 Confirmed By: CO2 Indicator, Bilateral Breath Sounds, Chest Xray Tube Secured By: By RT #1 Interpretation EKG Date: 09/24/20 Time: 22:20 EKG Interpretation Comments: Sinus tachycardia ventricular rate of 116 normal intervals and axis no acute ischemia Course - Vital Signs Last Recorded V/S: Last Vital Signs Temp 97 F 09/24/20 22:55 Pulse 126 H 09/24/20 22:55 Resp 16 09/24/20 22:55 BP 174/94 H 09/24/20 22:55 Pulse Ox 100 09/24/20 22:55 - Orders/Labs/Meds Orders: Active Orders 24 hr Category Date Time Status EKG 12 Lead [EKG Documentation Completion] [RC] STAT Care 09/24/20 21:48 Active RASS Sedation Scale [RC] ASDIRECTED Care 09/24/20 22:24 Active RT Aerosol Therapy [RC] ASDIRECTED Care 09/24/20 21:43 Active RT BiPAP/CPAP [RC] ASDIRECTED Care 09/24/20 23:17 Active RT Ventilator ED, Adult [RC] ASDIRECTED Care 09/24/20 23:19 Active B-TYPE NATRIURETIC PEPTIDE,BNP [CHEM] Stat Lab 09/24/20 22:38 Received CBC WITH AUTO DIFF [HEME] Stat Lab 09/24/20 22:38 Results COMPREHENSIVE METABOLIC PN,CMP [CHEM] Stat Lab 09/24/20 22:38 Received CULTURE BLOOD [BC] Stat Lab 09/24/20 22:41 Received CULTURE BLOOD [BC] Stat Lab 09/24/20 22:43 Received TROPONIN I [CHEM] Stat Lab 09/24/20 22:38 Received Sodium Chloride 0.9% [Saline Flush] Med 09/24/20 21:47 Active 10 ml FLUSH ASDIRECTED PRN Sodium Chloride 0.9% [Saline Flush] Med 09/24/20 21:47 Active 2.5 ml FLUSH ASDIRECTED PRN Vancomycin 1 gm Med 09/24/20 22:34 Active Sodium Chloride 0.9% [Normal Saline (AdvBag)] 250 ml IV ONETIME propofoL [Diprivan 100 ML] 100 ml Med 09/24/20 22:30 Active IV TITRATE Blood Culture x2 Reflex Set [OM.PC] Stat Oth 09/24/20 22:34 Ordered Desired Level of Sedation (RASS) [AST] Click to Edit Oth 09/24/20 22:24 Ordered Saline Lock Insert [OM.PC] Stat Oth 09/24/20 21:47 Ordered Medication Orders Propofol (Diprivan 100 Ml) 100 mls @ 2.517 mls/hr IV TITRATE EDUARDO; Protocol Vancomycin HCl 1 gm/ Sodium (Chloride) 250 mls @ 166 mls/hr IV ONETIME ONE Stop: 09/25/20 00:04 Last Admin: 09/24/20 23:02 Dose: 166 mls/hr Documented by: DELMA Sodium Chloride (Saline Flush) 10 ml FLUSH ASDIRECTED PRN PRN Reason: Keep Vein Open Last Admin: 09/24/20 22:17 Dose: 10 ml Documented by: DELMA Sodium Chloride (Saline Flush) 2.5 ml FLUSH ASDIRECTED PRN PRN Reason: Keep Vein Open Last Admin: 09/24/20 22:19 Dose: 2.5 ml Documented by: DELMA Labs: Laboratory Tests 09/24/20 09/24/20 09/24/20 Range/Units 22:04 22:05 22:05 WBC (4.0-11.0) K/uL RBC (4.30-5.90) M/uL Hgb (12.0-16.0) g/dL Hct (36.0-46.0) % MCV (80.0-98.0) fL MCH (27.0-32.0) pg MCHC (31.0-37.0) g/dL RDW Std Deviation (28.0-62.0) fl RDW Coeff of Ge (11.0-15.0) % MPV (7.40-12.00) fL Add Manual Diff Nucleated RBC % /100WBC Nucleated RBCs # K/uL ABG pH 7.252 L (7.35-7.45) ABG pCO2 44 (35-45) mmHG ABG pO2 408 H (75-100) mmHG ABG HCO3 20 L (22-26) mEq/L ABG Total CO2 24 ABG Base Excess -7.3 L (-2.0-2.0) Lactate 5.0 H* (0.20-2.00) mmol/L Urine Color Urine Appearance Urine pH (5.0-8.0) Ur Specific [place] (1.001-1.035) Urine Protein (NEGATIVE) mg/dL Urine Glucose (UA) (NEGATIVE) mg/dL Urine Ketones (NEGATIVE) mg/dL Urine Occult Blood (NEGATIVE) Urine Nitrite (NEGATIVE) Urine Bilirubin (NEGATIVE) Urine Urobilinogen (<2.0) EU/dL Ur Leukocyte Esterase (NEGATIVE) Urine RBC (0-2/HPF) Urine WBC (0-5/HPF) Ur Epithelial Cells (NONE-FEW) Amorphous Sediment (NEGATIVE) Urine Bacteria (NEGATIVE) Urine Mucus (NONE-MOD) SARS-CoV-2 RNA (EL) NEGATIVE (NEGATIVE) 09/24/20 09/24/20 Range/Units 22:20 22:38 WBC 4.35 (4.0-11.0) K/uL RBC 3.42 L (4.30-5.90) M/uL Hgb 8.0 L (12.0-16.0) g/dL Hct 27.5 L (36.0-46.0) % MCV 80.4 (80.0-98.0) fL MCH 23.4 L (27.0-32.0) pg MCHC 29.1 L (31.0-37.0) g/dL RDW Std Deviation 58.6 (28.0-62.0) fl RDW Coeff of Ge 20 H (11.0-15.0) % MPV 10.30 (7.40-12.00) fL Add Manual Diff YES Nucleated RBC % 5.2 /100WBC Nucleated RBCs # 1 K/uL ABG pH (7.35-7.45) ABG pCO2 (35-45) mmHG ABG pO2 (75-100) mmHG ABG HCO3 (22-26) mEq/L ABG Total CO2 ABG Base Excess (-2.0-2.0) Lactate (0.20-2.00) mmol/L Urine Color YELLOW Urine Appearance CLOUDY Urine pH 6.5 (5.0-8.0) Ur Specific [place] >= 1.030 (1.001-1.035) Urine Protein 100 H (NEGATIVE) mg/dL Urine Glucose (UA) NEGATIVE (NEGATIVE) mg/dL Urine Ketones NEGATIVE (NEGATIVE) mg/dL Urine Occult Blood LARGE H (NEGATIVE) Urine Nitrite NEGATIVE (NEGATIVE) Urine Bilirubin NEGATIVE (NEGATIVE) Urine Urobilinogen 0.2 (<2.0) EU/dL Ur Leukocyte Esterase NEGATIVE (NEGATIVE) Urine RBC 10-12 (0-2/HPF) Urine WBC 0-2 (0-5/HPF) Ur Epithelial Cells RARE (NONE-FEW) Amorphous Sediment MODERATE (NEGATIVE) Urine Bacteria 3+ H (NEGATIVE) Urine Mucus LIGHT (NONE-MOD) SARS-CoV-2 RNA (EL) (NEGATIVE) Meds: Medications Generic Name Dose Route Start Last Admin Trade Name Freq PRN Reason Stop Dose Admin Propofol 100 mls @ 2.517 mls/hr 09/24/20 22:30 Diprivan 100 Ml IV TITRATE EDUARDO Protocol 5 MCG/KG/MIN Vancomycin HCl 1 gm/ Sodium 250 mls @ 166 mls/hr 09/24/20 22:34 09/24/20 23:02 Chloride IV 09/25/20 00:04 166 mls/hr ONETIME ONE Administration Sodium Chloride 10 ml 09/24/20 21:47 09/24/20 22:17 Saline Flush FLUSH 10 ml ASDIRECTED PRN Administration Keep Vein Open Sodium Chloride 2.5 ml 09/24/20 21:47 09/24/20 22:19 Saline Flush FLUSH 2.5 ml ASDIRECTED PRN Administration Keep Vein Open Discontinued Medications Generic Name Dose Route Start Last Admin Trade Name Freq PRN Reason Stop Dose Admin Albuterol/Ipratropium 3 ml 09/24/20 21:43 09/24/20 22:14 Duoneb 3.0-0.5 Mg/3 Ml NEB 09/24/20 21:44 3 ml ONETIME ONE Administration Furosemide 80 mg 09/24/20 22:24 09/24/20 22:28 Lasix IVPUSH 09/24/20 22:25 80 mg NOW ONE Administration Propofol Confirm 09/24/20 21:54 09/24/20 22:25 Diprivan 50 Ml Administered 09/24/20 21:55 Not Given Dose 50 mls @ as directed .ROUTE .STK-MED ONE Cefepime HCl 2 gm/ Premix 50 mls @ 100 mls/hr 09/24/20 22:34 09/24/20 22:56 IV 09/24/20 23:03 100 mls/hr ONETIME ONE Administration Cefepime HCl Confirm 09/24/20 22:52 09/24/20 22:57 Maxipime In D5w 2 Gm/50 Ml Administered 09/24/20 22:53 Not Given Dose 50 mls @ as directed .ROUTE .STK-MED ONE Vancomycin HCl 1 gm/ Sodium 250 mls @ 166 mls/hr 09/24/20 22:58 09/24/20 23:04 Chloride IV 09/25/20 00:28 Not Given ONETIME ONE Sodium Chloride Confirm 09/24/20 23:00 09/24/20 23:03 Normal Saline (Advbag) Administered 09/24/20 23:01 Not Given Dose 250 mls @ as directed .ROUTE .STK-MED ONE Methylprednisolone Sodium Succinate 125 mg 09/24/20 21:43 09/24/20 22:14 Solu-Medrol IVPUSH 09/24/20 21:44 125 mg ONETIME ONE Administration Vancomycin HCl Confirm 09/24/20 22:55 09/24/20 23:01 Vancocin Administered 09/24/20 22:56 Not Given Dose 1 gm .ROUTE .STK-MED ONE Departure - Departure Time of Disposition: 23:22 Disposition: DC/Tfer to Acute Hospital 02 Condition: Critical Clinical Impression: Pneumonia, Respiratory failure - Discharge Information Referrals: Sathish Quintero MD [Primary Care Provider] - Forms: ED Department Discharge Critical Care Note - Critical Care Note Total Time (mins): 45 Sepsis Event Note (ED) - Evaluation Sepsis Screening Result: No Definite Risk - Focused Exam Vital Signs: Vital Signs Temp Pulse Resp BP Pulse Ox 09/24/20 22:55 97 F 126 H 16 174/94 H 100 09/24/20 21:51 97.4 F 119 H 16 202/110 H 99 - My Orders Last 24 Hours: My Active Orders 09/24/20 21:43 RT Aerosol Therapy [RC] ASDIRECTED 09/24/20 21:47 Sodium Chloride 0.9% [Saline Flush] 10 ml FLUSH ASDIRECTED PRN Sodium Chloride 0.9% [Saline Flush] 2.5 ml FLUSH ASDIRECTED PRN Saline Lock Insert [OM.PC] Stat 09/24/20 21:48 EKG 12 Lead [EKG Documentation Completion] [RC] STAT 09/24/20 22:24 RASS Sedation Scale [RC] ASDIRECTED Desired Level of Sedation (RASS) [AST] Click to Edit 09/24/20 22:30 propofoL [Diprivan 100 ML] 100 ml IV TITRATE 09/24/20 22:34 Vancomycin 1 gm Sodium Chloride 0.9% [Normal Saline (AdvBag)] 250 ml IV ONETIME Blood Culture x2 Reflex Set [OM.PC] Stat 09/24/20 22:38 B-TYPE NATRIURETIC PEPTIDE,BNP [CHEM] Stat CBC WITH AUTO DIFF [HEME] Stat COMPREHENSIVE METABOLIC PN,CMP [CHEM] Stat TROPONIN I [CHEM] Stat 09/24/20 22:41 CULTURE BLOOD [BC] Stat 09/24/20 22:43 CULTURE BLOOD [BC] Stat 09/24/20 23:17 RT BiPAP/CPAP [RC] ASDIRECTED 09/24/20 23:19 RT Ventilator ED, Adult [RC] ASDIRECTED - Assessment/Plan Last 24 Hours: My Active Orders 09/24/20 21:43 RT Aerosol Therapy [RC] ASDIRECTED 09/24/20 21:47 Sodium Chloride 0.9% [Saline Flush] 10 ml FLUSH ASDIRECTED PRN Sodium Chloride 0.9% [Saline Flush] 2.5 ml FLUSH ASDIRECTED PRN Saline Lock Insert [OM.PC] Stat 09/24/20 21:48 EKG 12 Lead [EKG Documentation Completion] [RC] STAT 09/24/20 22:24 RASS Sedation Scale [RC] ASDIRECTED Desired Level of Sedation (RASS) [AST] Click to Edit 09/24/20 22:30 propofoL [Diprivan 100 ML] 100 ml IV TITRATE 09/24/20 22:34 Vancomycin 1 gm Sodium Chloride 0.9% [Normal Saline (AdvBag)] 250 ml IV ONETIME Blood Culture x2 Reflex Set [OM.PC] Stat 09/24/20 22:38 B-TYPE NATRIURETIC PEPTIDE,BNP [CHEM] Stat CBC WITH AUTO DIFF [HEME] Stat COMPREHENSIVE METABOLIC PN,CMP [CHEM] Stat TROPONIN I [CHEM] Stat 09/24/20 22:41 CULTURE BLOOD [BC] Stat 09/24/20 22:43 CULTURE BLOOD [BC] Stat 09/24/20 23:17 RT BiPAP/CPAP [RC] ASDIRECTED 09/24/20 23:19 RT Ventilator ED, Adult [RC] ASDIRECTED Assessment:: 65-year-old female with advanced lung cancer currently being treated with pneumonia presents in respiratory distress. Given unclear initial goals of care patient was placed on BiPAP her oxygen climbed from the 60s to the 100 she did recover some mental status. While this was going on I talked to the patient's who says that if her heart were to stop she would not want to be brought back but that she would want to be intubated and have all treatment efforts attempted until that point. I was able to briefly speak to the patient and she confirmed that she did want to be intubated. Because of ongoing increased work of breathing patient was intubated using etomidate and rocuronium with good first-pass success. She maintained a sat of 100% throughout the intubation. She was given a inline neb treatment as well as 125 of Solu-Medrol chest x-ray shows diffuse infiltrates with pulmonary edema she was given a dose of Lasix initial ABG with metabolic acidosis likely related to her hypoxia. She has no hypotension at this time. Her initial profound hypertension was likely related to respiratory distress and is improving she currently appears comfortable with a propofol drip. Covid is negative other labs remain pending. Blood cultures ordered vancomycin and cefepime ordered for antibiotic coverage. 2240: [facility] [place] is on diversion for critical care. Pt discussed with [facility] full. Pt accepted for transfer to [facility]. Pt discussed with Dr. Corley the manager community development. He accepts the patient for transfer to [facility].
[2020-09-24] MEDS ORDERED: Furosemide 40 MG/4 ML VIAL IVPUSH ONE (22:24)
[2020-09-24] MEDS ORDERED: propofoL 100 ML IV SCH (22:30)
[2020-09-24] MEDS ORDERED: Cefepime 2 GM in Premix Bag 1 BAG IV ONE (22:34)
[2020-09-24] MEDS ORDERED: CEFEPIME ONE (22:52)
[2020-09-24] MEDS ORDERED: Vancomycin 1 GM AdvVial ONE (22:55)
--- NOTE | 2020-09-24 22:56 | CR ---
Indication: Shortness of breath Technique: Chest 1 view Comparison: Chest x-ray 09/18/2020 Findings/Impression: Cardiovascular and mediastinum: Normal heart size with atherosclerotic calcification and left-sided Port-A-Cath. Endotracheal tube with the distal trachea. Enteric tube extends below the hemidiaphragm. Lungs and pleural space: No pleural effusion or definite pneumothorax. Extensive bilateral interstitial opacities, worsened compared to the prior exam. Bones and soft tissues: Defibrillator pads overlie the chest. Dictated by Mahamed Mason MD @ Sep 24 2020 10:54PM Signed by Dr. Mahamed Mason @ Sep 24 2020 10:55PM
[2020-09-24] MEDS ORDERED: Sodium Chloride 0.9% 250 ML ONE (23:00)
[2020-09-24 23:30] LABS: BLOOD UREA NITROGEN,BUN 12 mg/dL (7.0-18.0); CARBON DIOXIDE,CO2 25.4 mmol/L (21.0-32.0); CHLORIDE,CL 105 mmol/L (98-107); GLUCOSE RANDOM 151 mg/dL (74-106); POTASSIUM,K 4.5 mmol/L (3.5-5.1); SODIUM,NA 140 mmol/L (136-145)
[2020-09-25] MEDS ORDERED: Propofol 200 MG/20 ML SDV ONE (04:10)
[2020-09-25] MEDS ORDERED: Propofol 200 MG/20 ML SDV IVPUSH ONE ×2 (04:32→07:20)
[2020-09-25] MEDS ORDERED: Cefepime 2 GM in Premix Bag 1 BAG IV ONE (06:40)
[2020-09-25] MEDS ORDERED: propofoL 100 ML ONE (07:48)
[2020-09-25] MEDS ORDERED: propofoL 100 ML IV SCH (08:00)
--- NOTE | 2020-09-25 09:01 | PCM.SN.2 ---
- Free Text/Narrative Note: Time 9 AM Patient was signed to me by previous attending. Patient had episode to where she has some slight movement at the suctioning. Patient was given a bolus of 50 mg of propofol. Patient remains with a possible vital signs remained stable. [facility] still [facility].
[2020-09-25 09:02] VITALS: BP 140/81; PULSE 100
[2020-09-25] MEDS ORDERED: fentaNYL 2,500 MCG in Sodium Chloride 0.9% 200 ML IV SCH (09:15)
== END 2020-09-25 09:58 ==
LOC: MW.ED 21:41
DX: J96.90 Respiratory failure, unspecified, unspecified whether with hypoxia or hypercapnia (principal); J18.9 Pneumonia, unspecified organism; E78.00 Pure hypercholesterolemia, unspecified; I10 Essential (primary) hypertension; F41.9 Anxiety disorder, unspecified; F32.9 Major depressive disorder, single episode, unspecified; Z20.828 Contact with and (suspected) exposure to other viral communicable diseases; Z88.1 Allergy status to other antibiotic agents; Z88.8 Allergy status to other drugs, medicaments and biological substances; Z79.899 Other long term (current) drug therapy
CPT/HCPCS: 31500; 36415; 36600; 43752; 51702; 71045; 80053; 81001; 82803; 82962; 83605; 83880; 84484; 85025; 87040; 93005; 94002; 94003; 94640; 94660; 96365; 96366; 96368; 96375; 96376; 99285; J0692; J1940; J2704; J2930; J3010; J3370; J3490; J7050; U0002; 93010; 99291; J7620-GY